=== PATIENT | female | born 1960 | race Caucasian/White ===

== ENCOUNTER 2019-02-27 14:12 | Outpatient (REF) | payer BC, SELFPAY | END 2019-02-27 14:32 | LOC: LBN 14:12 | PROVIDERS: PCP Nurse Practitioner Family; Visit Provider Nurse Practitioner Family | DX: N89.8 Other specified noninflammatory disorders of vagina (principal) | CPT/HCPCS: 87480; 87510; 87660 ==

== ENCOUNTER 2019-03-06 11:31 | Outpatient (REF) | payer BC, SELFPAY ==
--- NOTE | 2019-03-06 09:45 | PAPFT_PTH ---
PATIENT: Hiral Lucas LOC: [facility] U#:[id number] AGE/SX: 58/F ROOM: RE03/06/[address]: Cassie Velez APRN : 1960 BED: DIS: 03/06/2019 SPEC #: [id number] RECD: 03/06/19 12:43 STATUS: GENESIS REJose #: [id number] ESME: 03/06/19 09:[address]: Cassie Velez DEPT: [facility] Cytology RECD BY: Chantelle Justice Tissues: 1 - CX/ENDOCX FOR PAP SMEARS Procedures: PAP THIN PREP/UVM Screening HPV DNA PROBE Comments: [id number] (CHLAMYDIA/GC)
[2019-03-09 14:31] LABS: Chlamydia Result Negative; GC Result Negative; Specimen Description SEE COMMENTS
== END 2019-03-06 11:51 ==
LOC: LBN 11:31
PROVIDERS: PCP Nurse Practitioner Family; Visit Provider Nurse Practitioner Family
DX: Z12.4 Encounter for screening for malignant neoplasm of cervix (principal); Z11.51 Encounter for screening for human papillomavirus (HPV); Z11.3 Encounter for screening for infections with a predominantly sexual mode of transmission
CPT/HCPCS: 87491; 87591; 88142; 87624

== ENCOUNTER 2019-03-20 01:43 | Outpatient (CLI) | payer BC, SELFPAY ==
--- NOTE | 2019-03-20 16:04 | DI.MAMMO_ITS ---
SYMPTOM/DIAGNOSIS: SCREENING, Z12.31 MAMMOGRAMS: Mammograms were interpreted according to the usual protocol including computer analysis with CAD system, tomosynthesis and C view imaging. The breasts are heterogeneously dense. No dominant mass or clumped microcalcification identified in either breast. The current examination is compared with previous examinations including 02/2018 and there has been no gross interval change in appearance in comparison with the previous studies. CONCLUSION: No specific evidence of malignancy at this time. Routine screening examinations are suggested at yearly intervals due to the family history of breast carcinoma. Category 1. Breast density, category C. MQSA ASSESSMENT OF FINDINGS: Negative. Category 1. Patient will receive a letter notifying them of these results. Bi-RADS category C. The breasts are heterogeneously dense, which may obscure small masses.
== END 2019-03-20 02:03 ==
PROVIDERS: PCP Nurse Practitioner Family; Visit Provider Nurse Practitioner Family
DX: Z12.31 Encounter for screening mammogram for malignant neoplasm of breast (principal); Z80.3 Family history of malignant neoplasm of breast
CPT/HCPCS: 77063; 77067

== ENCOUNTER 2019-03-26 16:38 | Outpatient (REF) | payer BC, SELFPAY ==
--- NOTE | 2019-03-26 16:00 | CER_PTH ---
PATIENT: Hiral Lucas LOC: [facility] U#:[id number] AGE/SX: 58/F ROOM: RE03/26/[address]: Aurora Gaitan MD : 1960 BED: DIS: 03/26/2019 SPEC #: [id number] RECD: 03/26/19 17:33 STATUS: GENESIS REJose #: [id number] ESME: 03/26/19 16:[address]: Aurora Gaitan DEPT: Surgical Specimen RECD BY: Chantelle Justice ENTERED: 03/26/19 17:36 SP TYPE: CER KIMANI DR: Cassie Velez APRN Tissues: 1 - CERVICAL BIOPSY 2 - CERVICAL BIOPSY 3 - ENDOCERVICAL BX/CURRETTE 4 - ENDOMETRIUM BX/CURRETTE Procedures: GROSS AND MICRO LEVEL 4 Comments: [id number]
== END 2019-03-26 16:58 ==
LOC: LBN 16:38
PROVIDERS: PCP Nurse Practitioner Family; Visit Provider Obstetrics & Gynecology
DX: N84.1 Polyp of cervix uteri (principal); N88.8 Other specified noninflammatory disorders of cervix uteri; Z87.410 Personal history of cervical dysplasia; N85.01 Benign endometrial hyperplasia
CPT/HCPCS: 88305

== ENCOUNTER 2019-07-06 14:02 | Outpatient (CLI) | payer BC, SELFPAY ==
[2019-07-06 15:41] LABS: TSH (W/Ref FT4) 1.07 uIU/mL (0.36-3.74)
[2019-07-07 09:30] LABS: Prolactin 4.9 ng/ml
== END 2019-07-06 14:22 ==
PROVIDERS: PCP Nurse Practitioner Family; Visit Provider Obstetrics & Gynecology
DX: N95.0 Postmenopausal bleeding (principal); N64.4 Mastodynia
CPT/HCPCS: 36415; 84146; 84443

== ENCOUNTER 2019-07-10 01:01 | Outpatient (CLI) | payer BC, SELFPAY ==
--- NOTE | 2019-07-10 09:44 | DI.US_ITS ---
SYMPTOM/DIAGNOSIS: POSTMENOPAUSAL BLEEDING, N95.0 PELVIC ULTRASOUND: Transabdominal and transvaginal examination was performed. No priors for comparison. The uterus measures 7.2 cm. long by 4.5 cm. AP by 5.4 cm. transverse. The endometrial stripe is within normal limits at 6.7 mm. No myometrial mass is present. Both ovaries were visualized and show no gross abnormality. No free pelvic fluid or hydronephrosis is identified. IMPRESSION: Normal pelvic ultrasound.
== END 2019-07-10 01:21 ==
PROVIDERS: PCP Nurse Practitioner Family; Visit Provider Obstetrics & Gynecology
DX: N95.0 Postmenopausal bleeding (principal)
CPT/HCPCS: 76830; 76856

== ENCOUNTER 2019-09-28 01:16 | Outpatient (CLI) | payer BC, SELFPAY ==
--- NOTE | 2019-09-28 07:33 | DI.US_ITS ---
EXAM: US PELVIS TRANSVAGINAL CLINICAL HISTORY: Follow up left ovarian cyst and thickened endometrium, h/o postmenopausal bleeding , z87.42 TECHNIQUE: Ultrasound performed using standard protocol. COMPARISON: US PELVIS TRANSVAGINAL from 07/10/2019 FINDINGS: The patient was not adequately prepped for the examination. The study is somewhat limited due to ove rlying bowel. The uterus measures 6.1 cm long by 3.3 cm transverse by 4.7 cm AP. The endometrial stripe is within normal limits at 4.3 mm. The uterus is unremarkable. Cervical nabothian cysts are present. The ovaries were not visualized transabdominally or transvaginally. No adnexal masses are seen. No hydronephrosis or free pelvic fluid is seen. IMPRESSION: 1. Examination limited as described above. 2. Unremarkable examination as visualized.
== END 2019-09-28 01:36 ==
PROVIDERS: PCP Nurse Practitioner Family; Visit Provider Obstetrics & Gynecology
DX: N83.292 Other ovarian cyst, left side (principal); N95.0 Postmenopausal bleeding
CPT/HCPCS: 76830; 76856

== ENCOUNTER 2020-05-03 01:39 | Outpatient (CLI) | payer BC, SELFPAY ==
[2020-05-03 07:59] LABS: Abs Immature Grans 0.01 k/cumm (0.0-0.09); Absolute Basophil Count 0.04 k/cumm (0.0-0.2); Absolute Eosinophil Count 0.11 k/cumm (0.0-0.7); Absolute Lymphocyte Count 1.89 k/cumm (1.2-3.4); Absolute Monocyte Count 0.31 k/cumm (0.11-0.7); Absolute Neutrophil Count 3.26 k/cumm (1.2-6.7); Basophils % 0.7; HCT 43.3 % (36.0-46.0); HGB 15.3 g/dL (12.0-15.5); Immature Grans % 0.2 %; Lymphocytes % 33.6; Mean Corp. HGB Concentration 35.3 g/dL (32.0-36.0); Mean Corpuscular Hemoglobin 31.2 pg (27.0-33.0); Mean Corpuscular Volume 88.2 fL (80-95); Monocytes % 5.5; Platelet Count 248 x1000/uL (130-400); RBC 4.91 m/cumm (4.00-5.20); White Blood Cell Count 5.62 k/cumm (4.4-10.8)
[2020-05-03 08:47] LABS: ALT 26 U/L (14-59); AST 20 U/L (15-37); Albumin 4.1 g/dL (3.4-5.0); Alkaline Phosphatase 97 U/L (46-116); Anion Gap 4.3 mmol/L (3-11); BUN 10 mg/dL (7-18); Bilirubin, Total 0.5 mg/dL (0.2-1.0); CO2 32.7 mmol/L (21.0-32.0); Calculated LDL 120 mg/dL (<100); Chloride 107 mmol/L (98-107); Cholesterol 202 mg/dL (<200); Glucose 87 mg/dL (74-106); HDL Cholesterol 67 mg/dL (40-60); Potassium 4.7 mmol/L (3.5-5.1); Sodium 144 mmol/L (136-145); Total Protein 6.8 g/dL (6.4-8.2); Triglyceride 75 mg/dL (<150)
== END 2020-05-03 01:59 ==
PROVIDERS: PCP Nurse Practitioner Family; Visit Provider Nurse Practitioner Family
DX: E78.5 Hyperlipidemia, unspecified (principal); Z13.1 Encounter for screening for diabetes mellitus; Z51.81 Encounter for therapeutic drug level monitoring
CPT/HCPCS: 36415; 80053; 80061; 85025

== ENCOUNTER 2020-05-26 10:30 | Outpatient (REF) | payer BC, SELFPAY ==
--- NOTE | 2020-05-26 09:30 | PAPFT_PTH ---
PATIENT: Hiral Lucas LOC: [facility] U#:[id number] AGE/SX: 59/F ROOM: RE05/26/[address]: KEVEN Gudino : 1960 BED: DIS: 05/26/2020 SPEC #: [id number] RECD: 05/26/20 12:46 STATUS: GENESIS REQ #: [id number] ESME: 05/26/20 09:[address]: Laury Moses DEPT: [facility] Cytology RECD BY: Chantelle Justice ENTERED: 05/26/20 12:46 SP TYPE: PAPFT OTHR DR: Cassie Velez APRN Tissues: 1 - CX/ENDOCX FOR PAP SMEARS Procedures: PAP THIN PREP/UVM Screening HPV DNA PROBE Comments: [id number]
== END 2020-05-26 10:50 ==
LOC: LBN 10:30
PROVIDERS: PCP Nurse Practitioner Family; Visit Provider Nurse Practitioner Family
DX: Z12.4 Encounter for screening for malignant neoplasm of cervix (principal); Z11.51 Encounter for screening for human papillomavirus (HPV); R87.810 Cervical high risk human papillomavirus (HPV) DNA test positive; Z87.42 Personal history of other diseases of the female genital tract
CPT/HCPCS: 88142; 87624

== ENCOUNTER 2020-06-08 02:23 | Outpatient (CLI) | payer BC, SELFPAY ==
--- NOTE | 2020-06-08 07:45 | DI.MAMMO_ITS ---
EXAM: MG MAMMO SCREENING CLINICAL HISTORY: screening,z12.39 TECHNIQUE: Bilateral full field digital CC and MLO mammographic images were obtained with 3D tomosyn thesis and utilizing computer aided detection (CAD). COMPARISON: Available for comparison. FINDINGS: Masses/Architectural Distortion: None seen. Microcalcifications: No suspicious pleomorphic-type are seen. Skin Thickening/Nipple Retraction: None. IMPRESSION: 1. No significant interval change with no specific features of malignancy noted. 2. Unless there is more urgent need, screening mammography is recommended, as per [employer] [employer] guidelines. BI-RADS Category 1 - Negative Breast Density - Category C - Heterogeneously dense The mammogram demonstrates the patient's breast tissue is dense. Dense breast tissue is very common a nd is not abnormal but dense breast tissue can make it harder to find cancer on a mammogram. Also, de nse breast tissue may increase their breast cancer risk. This information about the result of the [facility] mogram report was provided to the patient to raise their awareness. Use this report when you speak wi th the patient about their risks for breast cancer, which includes their family history. At that time , you may recommend for more screening tests (Ultrasound or MRI) as they might be useful based on the ir risk. A negative radiographic report should not delay biopsy if a dominant or clinically suspicious mass is present. Up to ten percent of cancers are not identified on mammography. A negative report may reinforce clinical impression. Adenosis and dense breasts may obscure an underlying neoplasm. False positive reports average 6 to 10%. Patient will receive a letter notifying them of these results.
== END 2020-06-08 02:43 ==
PROVIDERS: PCP Nurse Practitioner Family; Visit Provider Nurse Practitioner Family
DX: Z12.31 Encounter for screening mammogram for malignant neoplasm of breast (principal)
CPT/HCPCS: 77063; 77067

== ENCOUNTER 2020-06-15 12:37 | Outpatient (REF) | payer BC, SELFPAY ==
--- NOTE | 2020-06-15 11:30 | ENDO_PTH ---
PATIENT: Hiral Lucas LOC: [facility] U#:[id number] AGE/SX: 59/F ROOM: RE06/15/[address]: Kristopher Maloney MD : 1960 BED: DIS: 06/15/2020 SPEC #: [id number] RECD: 06/15/20 16:46 STATUS: GENESIS REJose #: [id number] ESME: 06/15/20 11:[address]: Kritsopher aMloney DEPT: Surgical Specimen RECD BY: Chantelle Justice ENTERED: 06/15/20 16:49 SP TYPE: Endo OTHR DR: Cassie Velez APRN Tissues: 1 - ENDOCERVICAL BX/CURRETTE Procedures: GROSS AND MICRO LEVEL 4 Comments: [id number]
== END 2020-06-15 12:57 ==
LOC: LBN 12:37
PROVIDERS: PCP Nurse Practitioner Family; Visit Provider Obstetrics & Gynecology
DX: R87.810 Cervical high risk human papillomavirus (HPV) DNA test positive (principal); Z87.42 Personal history of other diseases of the female genital tract; N72 Inflammatory disease of cervix uteri
CPT/HCPCS: 88305

== ENCOUNTER 2021-06-15 04:23 | Outpatient (CLI) | payer BC, SELFPAY ==
[2021-06-15 07:24] LABS: Abs Immature Grans 0.01 10^3/uL (0.0-0.06); Absolute Basophil Count 0.05 10^3/uL (0.0-0.2); Absolute Lymphocyte Count 1.55 10^3/uL (1.2-3.4); Absolute Monocyte Count 0.28 10^3/uL (0.1-0.8); Absolute Neutrophil Count 2.69 10^3/uL (1.2-6.7); Basophils % 1.1; Eosinophils % 2.1; HCT 47.1 % (36.0-46.0); HGB 16.6 g/dL (11.2-15.7); Immature Grans % 0.2; Lymphocytes % 33.1; MCHC 35.2 % (32.0-36.0); MCV 87.9 fL (80-95); MPV 9.2 fL (8.0-11.0); Neutrophils % 57.5; Nucleated RBC 0 %; Platelet Count 217 10^3/uL (130-400); RBC 5.36 10^6/uL (3.93-5.22); RDW 12.5 % (11.7-14.6); RDW-SD 40.3 fL; WBC 4.68 10^3/uL (4.4-10.8)
[2021-06-15 08:09] LABS: ALT 19 U/L (14-59); AST 15 U/L (15-37); Albumin 4.1 g/dL (3.4-5.0); Alkaline Phosphatase 92 U/L (46-116); Anion Gap 9.4 mmol/L (3-11); BUN 14 mg/dL (7-18); Bilirubin, Total 0.5 mg/dL (0.2-1.0); CO2 29.6 mmol/L (21.0-32.0); CREATININE 0.8 mg/dL (0.55-1.02); Chloride 106 mmol/L (98-107); Glucose 81 mg/dL (74-106); Potassium 4.1 mmol/L (3.5-5.1); Sodium 145 mmol/L (136-145); Total Protein 7.2 g/dL (6.4-8.2)
[2021-06-16 10:35] LABS: Hepatitis C Ab w Rflx HCV PCR Negative (Negative)
[2021-06-16 10:50] LABS: HIV-1/2 Ag & Ab Screen Negative (Negative)
== END 2021-06-15 04:24 | disposition home or self-care (01) ==
LOC: LBO 04:23
PROVIDERS: PCP Nurse Practitioner Family; Visit Provider Nurse Practitioner Family
DX: Z13.1 Encounter for screening for diabetes mellitus (principal); Z51.81 Encounter for therapeutic drug level monitoring; Z11.4 Encounter for screening for human immunodeficiency virus [HIV]; Z11.59 Encounter for screening for other viral diseases
CPT/HCPCS: 36415; 80053; 86803; 87389; 85025

== ENCOUNTER 2021-07-03 01:53 | Outpatient (CLI) | payer BC, SELFPAY ==
--- NOTE | 2021-07-03 08:27 | DI.MAMMO_ITS ---
Exam(s) MAMMO SCREENING EXAM: MAMMO SCREENING CLINICAL HISTORY: screening, Z12.39. TECHNIQUE: Bilateral full field digital CC and MLO mammographic images were obtained with 3D tomosyn thesis and utilizing computer aided detection (CAD). COMPARISON: Prior mammograms dating back to 2011, the most recent being May 2020. FINDINGS: Fibroglandular tissue is moderately dense. Some asymmetric tissue in left breast seen on the CC view located 5 cm in from the nipple is unchange d. There are no new obvious spiculated masses nor malignant appearing microcalcification groups. There is no significant architectural distortion nor skin thickening-retraction. IMPRESSION: No radiographic evidence of malignancy. BI-RADS Category 1 - Negative Breast Density - Category C - Heterogeneously dense Breast density Category C or D implies that the patient has dense breast tissue. Dense breast tissue can make it harder to find cancer on a mammogram. Dense breast tissue is also associated with an incr eased risk of breast cancer. This information about the result of the mammogram report was provided to the patient to raise their awareness. Use this report when you speak with the patient about their risks for breast cancer, which includes their family history. At that time, you may recommend additional screening tests (Ultrasoun d or MRI) as these tests may add significant information. A negative radiographic report should not delay biopsy if a dominant or clinically suspicious mass is present. Up to ten percent of cancers are not identified on mammography. A negative report may reinforce clinical impression. Adenosis and dense breasts may obscure an underlying neoplasm. False positive reports average 6 to 10%. Patient will receive a letter notifying them of these results.
== END 2021-07-03 02:13 ==
PROVIDERS: PCP Nurse Practitioner Family; Visit Provider Nurse Practitioner Family
DX: Z12.31 Encounter for screening mammogram for malignant neoplasm of breast (principal)
CPT/HCPCS: 77063; 77067

== ENCOUNTER 2021-07-03 11:57 | Outpatient (REF) | payer BC, SELFPAY ==
--- NOTE | 2021-07-03 10:45 | PAPFT_PTH ---
PATIENT: Hiral Lucas LOC: [facility] U#:[id number] AGE/SX: 60/F ROOM: RE07/03/[address]: KEVEN Gudino : 1960 BED: DIS: 07/03/2021 SPEC #: [id number] RECD: 07/03/21 12:55 STATUS: GENESIS REQ #: [id number] ESME: 07/03/21 10:[address]: Laury Moses DEPT: [facility] Cytology RECD BY: Chantelle Justice ENTERED: 07/03/21 12:56 SP TYPE: PAPFT OTHR DR: Cassie Velez APRN Tissues: 1 - CX/ENDOCX FOR PAP SMEARS Procedures: PAP THIN PREP/UVM Screening HPV DNA PROBE Comments: [id number]
== END 2021-07-03 11:58 | disposition home or self-care (01) ==
LOC: LBN 11:57
PROVIDERS: PCP Nurse Practitioner Family; Visit Provider Nurse Practitioner Family
DX: Z12.4 Encounter for screening for malignant neoplasm of cervix (principal); R87.610 Atypical squamous cells of undetermined significance on cytologic smear of cervix (ASC-US); Z11.51 Encounter for screening for human papillomavirus (HPV); R87.810 Cervical high risk human papillomavirus (HPV) DNA test positive
CPT/HCPCS: 88142; 87624

== ENCOUNTER 2022-05-09 02:14 | Outpatient (CLI) | payer BC, SELFPAY ==
[2022-05-09 13:16] LABS: Abs Immature Grans 0.02 10^3/uL (0.0-0.06); Absolute Basophil Count 0.06 10^3/uL (0.0-0.2); Absolute Eosinophil Count 0.12 10^3/uL (0.0-0.7); Absolute Lymphocyte Count 2.33 10^3/uL (1.2-3.4); Absolute Monocyte Count 0.52 10^3/uL (0.1-0.8); Absolute Neutrophil Count 4.08 10^3/uL (1.2-6.7); Basophils % 0.8; Eosinophils % 1.7; HCT 45.2 % (36.0-46.0); HGB 15.8 g/dL (11.2-15.7); Immature Grans % 0.3; Lymphocytes % 32.7; MCH 31.2 pg (27.0-33.0); MCV 89 fL (80-95); MPV 8.6 fL (8.0-11.0); Monocytes % 7.3; Neutrophils % 57.2; Platelet Count 226 10^3/uL (130-400); RBC 5.07 10^6/uL (3.93-5.22); RDW 12.1 % (11.7-14.6); RDW-SD 39.6 fL; WBC 7.13 10^3/uL (4.4-10.8)
== END 2022-05-09 02:15 | disposition home or self-care (01) ==
LOC: LBO 02:14
PROVIDERS: PCP Nurse Practitioner Family; Visit Provider Nurse Practitioner Family
DX: R71.8 Other abnormality of red blood cells (principal)
CPT/HCPCS: 36415; 85025

== ENCOUNTER 2022-06-26 03:25 | Outpatient (CLI) | payer BC, SELFPAY ==
[2022-06-26 07:55] LABS: ALT 27 U/L (14-59); AST 22 U/L (15-37); Albumin 3.6 g/dL (3.4-5.0); Alkaline Phosphatase 89 U/L (46-116); BUN 12 mg/dL (7-18); Bilirubin, Total 0.6 mg/dL (0.2-1.0); CREATININE 0.7 mg/dL (0.55-1.02); Calcium 8.6 mg/dL (8.5-10.1); Calculated LDL 126 mg/dL (<100); Chloride 106 mmol/L (98-107); Cholesterol 206 mg/dL (<200); Glucose 87 mg/dL (74-106); HDL Cholesterol 65 mg/dL (40-60); Sodium 141 mmol/L (136-145); Total Protein 6.8 g/dL (6.4-8.2); Triglyceride 75 mg/dL (<150)
== END 2022-06-26 03:26 | disposition home or self-care (01) ==
LOC: LBO 03:25
PROVIDERS: PCP Nurse Practitioner Family; Visit Provider Nurse Practitioner
DX: E78.5 Hyperlipidemia, unspecified (principal); Z13.220 Encounter for screening for lipoid disorders
CPT/HCPCS: 36415; 80053; 80061

== ENCOUNTER → 2022-07-06 00:07 | Outpatient (CLI) | payer BC, SELFPAY ==
--- OUTSIDE RECORDS SUMMARY | 2022-07-06 00:09 | XMS_ITS | Encounter Summary ---
:1960 Author Organization [facility] Address [address] [place] [address] Care Team Providers Name Role Phone Unavailable Primary Care Provider Unavailable Encounter Details Date Type Department Care Team Description 11/19/2002 Results Only [facility] - Caren Miller NP conversion [address] [place] [address] Social History Tobacco Use Types Packs/Day Years Used Date Never Assessed Sex Assigned at Date Recorded Not on file documented as of this encounter Plan of Treatment Not on filedocumented as of this encounter Procedures Procedure Name Priority Date/Time Associated Diagnosis Comme nts CYTOPATHOLOGY Routine 11/19/2002 0:00 EST Results for this procedure are i n the results section . documented in this encounter Results CYTOPATHOLOGY (11/19/2002 0:00 EST) Pathology Report: CYTOPATHOLOGY REPORT [facility] Reports generated via electronic interface contain christiano ginal data; however they are lacking the format of the original re port. Caution should be taken when reading/interpreting unfo rmatted reports. Name: ? HIRAL LUCAS ? Accession #: ? [id number] : ? 1960 (Age: 42) ??F ?Collect Date: ? 12/2002 Location: ? [facility] ? Receive Date : ? 11/23/2002 Provider: ?CAREN WALLACE MANAGER BALANCE Copy to: ? Specimen/Source: ?ThinPrep Pap Test, Cervix/ Endocervix Last Menstrual Period: ? Previous Gynecologic Pathology: ? ASC-US: , , Benign cellular changes: , HPV ? SPECIMEN ADEQUACY ? Satisfactory for Evaluation - transformation zone component present GENERAL CATEGORIZATION ? Negative for Intraepithelial Lesion or Malignan cy INTERPRETATION ? Reactive cellular ct nges associated with inflammation present (includes repair). ? Document reviewed and electronically signed by: ? Lisa Schwartz MD ? Report Date: ??11/27/2002 08:33 End of Report Specimen Performing Organization Address City/State/ZIP Code Phon e Number [facility] [address] [place] [address] SERVICES [facility] [address] [place] [address] documented in this encounter Visit Diagnoses Not on filedocumented in this encounter
--- OUTSIDE RECORDS SUMMARY | 2022-07-06 00:09 | XMS_ITS | Encounter Summary ---
:1960 Author Organization [facility] Address [address] [place] [address] Care Team Providers Name Role Phone Unavailable Primary Care Provider Unavailable Encounter Details Date Type Department Care Team Description 01/11/2004 Results Only [facility] - Bárbara Mart MD Maple conversion [address] [place] [address] [place] [address] Social History Tobacco Use Types Packs/Day Years Used Date Never Assessed Sex Assigned at Date Recorded Not on file documented as of this encounter Plan of Treatment Not on filedocumented as of this encounter Procedures Procedure Name Priority Date/Time Associated Diagnosis Comme [facility] SURGICAL PATHOLOGY Routine 01/11/2004 0:00 EST Re sults for this procedure are i n the results section. documented in this encounter Results SURGICAL PATHOLOGY (01/11/2004 0:00 EST) Pathology Report: SURGICAL PATHOLOGY REPORT [facility] Reports generated via electronic interface contain christiano ginal data; LAB however they are lacking the format of the original re port. Caution should be taken when reading/interpreting unfo rmatted reports. Name: ? HIRAL LUCAS ? Accession #: ? [id number] ? : ? 1960 (Age: 43) ??F ? Collect Date: ? 01/11/2004 ? Location: ? [facility] ? Receive Date: ? 004 ? Provider: DESTINY MART MD Copy to: DESTINY ALAN HEAD USHER ? Final Pathologic Diagnosis: ? Cervix, polyp, polypectomy: 1. ?Endocervical polyp. 2. ?No dysplasia identified. Document reviewed and electronically signed by: SOURAV MARTIN MD Report ??Date: 01/13/2004 16:52 By the signature above, the attending physician certif ies that he/she has personally conducted a gross and/or microscopic examin ation of the described specimens and rendered or confirmed the above diagnosi s. Specimen(s) Received: ? Polyp Clinical History: ? Endocervical polyp Gross Description: ? Received in formalin labeled Laferriere and cervix endo are two peace-white to red, focally he morrhagic soft tissue fragments averaging 0.6 x 0.5 x 0.3 cm to 0.7 x 0.5 x 0.3 cm. ??The specimen is enti rely submitted in one cassette. ??(Marta Monte)/dennis End of Report Specimen Performing Organization Address City/State/ZIP Code Phon e Number [facility] [address] [place] [address] SERVICES [facility] [address] [place] [address] documented in this encounter Visit Diagnoses Not on filedocumented in this encounter
--- OUTSIDE RECORDS SUMMARY | 2022-07-06 00:09 | XMS_ITS | Encounter Summary ---
:1960 Author Organization [facility] Address [address] [place] [address] Care Team Providers Name Role Phone Unavailable Primary Care Provider Unavailable Encounter Details Date Type Department Care Team Description 11/07/2000 Results Only [facility] - Caren Miller NP conversion [address] [place] [address] Social History Tobacco Use Types Packs/Day Years Used Date Never Assessed Sex Assigned at Date Recorded Not on file documented as of this encounter Plan of Treatment Not on filedocumented as of this encounter Procedures Procedure Name Priority Date/Time Associated Diagnosis Comme nts CYTOPATHOLOGY Routine 11/07/2000 0:00 EST Results for this procedure are i n the results section . documented in this encounter Results CYTOPATHOLOGY (11/07/2000 0:00 EST) Pathology Report: CYTOPATHOLOGY REPORT [facility] Reports generated via electronic interface contain christiano ginal data; however they are lacking the format of the original re port. Caution should be taken when reading/interpreting unfo rmatted reports. Name: ? HIRAL LUCAS ? Accession #: ? [id number] : ? 1960 (Age: 39) ??F ?Collect Date: ? 10/19 Location: ? [facility] ? Receive Date : ? 11/08/2000 Provider: ?CAREN WALLACE STEELSCOPE OPERATOR Copy to: ? Specimen/Source: ?ThinPrep Pap Test, Cervix/ Endocervix Last Menstrual Period: ? 10/18/00 Previous Gynecologic Pathology: ? ASC-US: , Benign cellular changes: Treatment History: ? Cryotherapy ? SPECIMEN ADEQUACY ? Satisfactory for evaluation. GENERAL CATEGORIZATION ? Epithelial Cell Abnormality DESCRIPTIVE DIAGNOSIS ? Atypical squamous cells of undetermined signifi cance (ASCUS), favor reactive process. RECOMMENDATION ? Recommend repeat Pap test in 3-6 months or further follow up, as clinically indicated. ? Document reviewed and electronically signed by: ? Sihra Zelaya MD ? Report Date: ??11/26/2000 13:06 End of Report Specimen Performing Organization Address City/State/ZIP Code Phon e Number [facility] [address] [place] [address] SERVICES [facility] [address] [place] [address] documented in this encounter Visit Diagnoses Not on filedocumented in this encounter
--- OUTSIDE RECORDS SUMMARY | 2022-07-06 00:09 | XMS_ITS | Encounter Summary ---
:1960 Author Organization [facility] Address [address] [place] [address] Care Team Providers Name Role Phone Unavailable Primary Care Provider Unavailable Encounter Details Date Type Department Care Team Description 10/12/2014 Hospital Encounter [facility]- Marlen Unknown, Provider, [facility] [address] [facility] [phone] [place] [address] (Work) [phone] Social History Tobacco Use Types Packs/Day Years Used Date Never Assessed Sex Assigned at Date Recorded Not on file documented as of this encounter Discharge Disposition Disposition Code Departure Means Destination Home or Self Retirement documented in this encounter Plan of Treatment Not on filedocumented as of this encounter Visit Diagnoses Not on filedocumented in this encounter
--- OUTSIDE RECORDS SUMMARY | 2022-07-06 00:09 | XMS_ITS | Encounter Summary ---
:1960 Author Organization [facility] Address [address] [place] [address] Care Team Providers Name Role Phone Unavailable Primary Care Provider Unavailable Encounter Details Date Type Department Care Team Description 04/22/2008 Results Only [facility] - Meaghan Stoddard son, Jasmin L, PROPERTY LOSS INSURANCE CLAIM ADJUSTER conversion [address] [place] [phone] (Wo rk) Social History Tobacco Use Types Packs/Day Years Used Date Never Assessed Sex Assigned at Date Recorded Not on file documented as of this encounter Plan of Treatment Not on filedocumented as of this encounter Procedures Procedure Name Priority Date/Time Associated Diagnosis Comme nts CYTOPATHOLOGY Routine 04/22/2008 0:00 EDT Results for this procedure are i n the results section . documented in this encounter Results CYTOPATHOLOGY (04/22/2008 0:00 EDT) Pathology Report: CYTOPATHOLOGY REPORT [facility] Reports generated via electronic interface contain christiano ginal data; however they are lacking the format of the original re port. Caution should be taken when reading/interpreting unfo rmatted reports. Name: ? HIRAL LUCAS ? Accession #: ? [id number] : ? 1960 (Age: 47) ??F ?Collect Date: ? 03/2008 Location: ? [facility] ? Receive Date : ? 04/23/2008 Provider: ?JASMIN ALAN PROPERTY LOSS INSURANCE CLAIM ADJUSTER Copy to: ? Specimen/Source: ? ThinPrep Pap Test, Cervix, processed on Owned it ThinPrep Imaging System, with manual evaluation Last Menstrual Period: ? 03/21/08 Other: ? HPVA - HPV testing requested if ASC-US on the current ThinPrep Pap test. ? SPECIMEN ADEQUACY ? Satisfactory for Evaluation - transformation zone component present GENERAL CATEGORIZATION ? Negative for Intraepithelial Lesion or Malignan cy ? Document reviewed and electronically signed by: ? Lorie Encarnacion, SCT(ASCP) ? Report Date: ??04/26/2008 15:33 End of Report Specimen Performing Organization Address City/State/ZIP Code Phon e Number [facility] [address] [place] [address] SERVICES [facility] [address] [place] [address] documented in this encounter Visit Diagnoses Not on filedocumented in this encounter
--- OUTSIDE RECORDS SUMMARY | 2022-07-06 00:09 | XMS_ITS | Encounter Summary ---
:1960 Author Organization [facility] Address [address] [place] [address] Care Team Providers Name Role Phone Temo Nunez MD Primary Care Provider [phone] Encounter Details Date Type Department Care Team Description 03/06/2018 Hospital Encounter [facility]- Marlen Unknown, Provider, [facility] [address] [facility] [phone] [place] [address] (Work) [phone] Social History Tobacco Use Types Packs/Day Years Used Date Never Assessed Sex Assigned at Date Recorded Not on file documented as of this encounter Discharge Disposition Disposition Code Departure Means Destination Home or Self Residential documented in this encounter Plan of Treatment Not on filedocumented as of this encounter Visit Diagnoses Not on filedocumented in this encounter Care Teams Billing Typist Relationship Specialty Start Date End Date Temo Nunez MD PCP - General 10/15/14 06/14/20 documented as of this encounter
--- OUTSIDE RECORDS SUMMARY | 2022-07-06 00:09 | XMS_ITS | Encounter Summary ---
:1960 Author Organization [facility] Address [address] [place] [address] Care Team Providers Name Role Phone Unavailable Primary Care Provider Unavailable Encounter Details Date Type Department Care Team Description 10/12/2014 Results Only [facility] Jasmin Mart MD Laboratory Services - [address] [place] [address] [place] [address] Social History Tobacco Use Types Packs/Day Years Used Date Never Assessed Sex Assigned at Date Recorded Not on file documented as of this encounter Plan of Treatment Not on filedocumented as of this encounter Procedures Procedure Name Priority Date/Time Associated Diagnosis Comme [facility] SURGICAL PATHOLOGY Routine 10/12/2014 17:55 Resul ts for this EST procedure are i n the results section. documented in this encounter Results SURGICAL PATHOLOGY (10/12/2014 17:55 EST) Pathology Report: SURGICAL PATHOLOGY REPORT [facility] Reports generated via electronic interface contain christiano ginal data; LABORATORY however they are lacking the format of the original re port. SERVICES Caution should be taken when reading/interpreting unfo rmatted reports. Name: ? HIRAL LUCAS ? Accession #: ? [id number] ? : ? 1960 (Age: 53) ??F ? Collect Date: ? 10/12/2014 ? Location: ? [facility] ? Receive Date: ? 014 ? Provider: JASMIN MART MD Copy to: JASMIN ALAN WIDE AREA NETWORK ENGINEER ? Final Pathologic Diagnosis: ENDOCERVIX, POLYP, BIOPSY: - ??Benign endocervical polyp. Document reviewed and electronically signed by: LANDY LINDSEY MD Report ??Date: 10/18/2014 15:27 By the signature above, the attending physician certif ies that he/she has personally conducted a gross and/or microscopic examin ation of the described specimens and rendered or confirmed the above diagnosi s. Specimen(s) Received: Endocervical polyp Clinical History: Polyp Gross Description: ? Received in formalin labelled with proper patient identification (initials B, N) and cervical polyp a re two peace-pink polypoid tissues (0.5 x 0.5 x 0.4 cm and 0.7 x 0.3 x 0.1 cm) admixed with 1 cc of blo od tinged mucus and red-brown tissue fragments. Entirely submitted in block 1. Ora Reese 10/13/2014 10:40 AM End of Report Specimen Performing Organization Address City/State/ZIP Code Phon e Number [facility] [address] [place] [address] SERVICES documented in this encounter Visit Diagnoses Not on filedocumented in this encounter
--- OUTSIDE RECORDS SUMMARY | 2022-07-06 00:09 | XMS_ITS | Encounter Summary ---
:1960 Author Organization [facility] Address [address] [place] [address] Care Team Providers Name Role Phone Unavailable Primary Care Provider Unavailable Encounter Details Date Type Department Care Team Description 07/09/2013 Results Only [facility]- Destiny Rucker, RECONSTRUCTIVE SURGEON [address] [place] [address] (Wo rk) Social History Tobacco Use Types Packs/Day Years Used Date Never Assessed Sex Assigned at Date Recorded Not on file documented as of this encounter Plan of Treatment Not on filedocumented as of this encounter Procedures Procedure Name Priority Date/Time Associated Diagnosis Comme nts PAP TEST- RESULT Routine 07/09/2013 0:00 EDT Resu lts for this ONLY procedure are i n the results section. documented in this encounter Results PAP TEST- RESULT ONLY (07/09/2013 0:00 EDT) Pathology Report: CYTOPATHOLOGY REPORT [facility] Reports generated via electronic interface contain christiano ginal data; however they are lacking the format of the original re port. Caution should be taken when reading/interpreting unfo rmatted reports. Name: ? HIRAL LUCAS ? Accession #: ? [id number] ? : ? 1960 (Age: 52) ??F ?Collect Da te: ? 07/09/2013 ? Location: ? [facility] ? Receive Date: ? 013 ? Provider: DESTINY LI RECONSTRUCTIVE SURGEON Copy to: ? Final Report SPECIMEN ADEQUACY ? Satisfactory for Evaluation - transformation zone component present GENERAL CATEGORIZATION ? Negative for Intraepithelial Lesion or Malignan cy ?? Last Menstrual Period: 12/31 Previous Gynecologic Pathology: Yes: ??Abnormal Pap, e ndocervical polyp - negative Treatment History: Miscellaneous treatment: Biopsy 200 4 Other: Additional clinical information: Specimen/Source: ??Pap Test, Cervix/Endocervix, ThinPr ep Imaging System with manual evaluation Document reviewed and electronically signed by: ? CORNELIA Hernandez(ASCP) ? Report ??Date: 07/21/2013 12:30 HPV with Pap Test ? Date Ordered: ? 07/21/2013 ? Status: ?? Signed Out ?Date Complete: ? 07/23/2013 ? By: ??S ystem Interface ? Date Reported: ? 07/23/2013 ? Interpretation RESULT: Positive for high or intermediate risk HPV. E6 OR E7 mRNA from one or more types of HPV types 16,1 8,31, 33,35,39,45,51,52,56,58,59,66, and 68 is detected by stroke coordinator mediated amplification. High and intermediate risk HPV types are associated wi th most squamous intraepithelial lesions and cervical can cers. Comments Document reviewed and electronically signed by: ? System Interface ? Report date: 07/23/2013 By the signature above, the attending physician certif ies that he/she has personally conducted a gross and/or microscopic examin ation of the described specimens and rendered or confirmed the above diagnosi s. End of Report Specimen Performing Organization Address City/State/ZIP Code Phon e Number [facility] [address] [place] [address] SERVICES [facility] [address] [place] [address] documented in this encounter Visit Diagnoses Not on filedocumented in this encounter
--- OUTSIDE RECORDS SUMMARY | 2022-07-06 00:09 | XMS_ITS | Encounter Summary ---
:1960 Author Organization [facility] Address [address] [place] [address] Care Team Providers Name Role Phone Temo Nunez MD Primary Care Provider [phone] Encounter Details Date Type Department Care Team Description 03/06/2018 Results Only [facility]- PRISM Cassie Velez, [facility] [phone] [address] [place] [phone] (Wo rk) Social History Tobacco Use Types Packs/Day Years Used Date Never Assessed Sex Assigned at Date Recorded Not on file documented as of this encounter Plan of Treatment Not on filedocumented as of this encounter Procedures Procedure Name Priority Date/Time Associated Diagnosis Comme nts PAP TEST- RESULT Routine 03/06/2018 0:00 EDT Resu lts for this ONLY procedure are i n the results section. documented in this encounter Results PAP TEST- RESULT ONLY (03/06/2018 0:00 EDT) Pathology Report: CYTOPATHOLOGY REPORT [facility] Reports generated via electronic interface contain christiano ginal data; SERVICES however they are lacking the format of the original re port. Caution should be taken when reading/interpreting unfo rmatted reports. Name: ? HIRAL LUCAS ? Accession #: ? [id number] ? : ? 1960 (Age: 57) ??F ?Collect Date: ? 03/06/2018 ? Location: ? [facility] ? Receive Date: ? 03/07/20 18 ? Provider: CASSIE VELEZ CUTTER MACHINE Copy to: ? Final Report SPECIMEN ADEQUACY ? Satisfactory for Evaluation - transformation zone component present GENERAL CATEGORIZATION ? Epithelial Cell Abnormality INTERPRETATION ? Squamous Cell Abnormality - Atypical squamous c ells, undetermined significance (ASC-US). EDUCATIONAL NOTES/RECOMMENDATIONS ? [facility] recommends foll owing ASCCP's 2012 Updated Consensus Guidelines for the Management of Abnormal Cervical Cancer Screening T ests and Cancer Precursors (JLGTD, 2013; 17(5):S1-S27). ??Conse nsus guidelines are available online at www.asccp.org. Comment: ? Atrophic background. ? Last Menstrual Period: 2016 Specimen/Source: ??Pap Test, Cervix, ThinPrep Imaging System with manual evaluation Document reviewed and electronically signed by: ? JEANNA CRUM MD ? Report ??Date: 03/17/2018 12:11 HPV with Pap Test ? Date Ordered: ? 03/17/2018 ? Status: ?? Signed Out ?Date Complete: ? 03/18/2018 ? By: ??Sys tem Interface ? Date Reported: ? 03/18/2018 ? Interpretation RESULT: POSITIVE FOR HIGH OR INTERMEDIATE RISK HPV. E6 OR E7 mRNA from one or more types of HPV types 16,1 8,31, 33,35,39,45,51,52,56,58,59,66, and 68 is detected by presser all around mediated amplification. High and intermediate risk HPV types are associated wi th most squamous intraepithelial lesions and cervical can cers. Comments Document reviewed and electronically signed by: ? System Interface ? Report date: 03/18/2018 By the signature above, the attending physician certif ies that he/she has personally conducted a gross and/or microscopic examin ation of the described specimens and rendered or confirmed the above diagnosi s. End of Report Specimen Performing Organization Address City/State/ZIP Code Phon e Number [facility] [address] [place] [address] SERVICES documented in this encounter Visit Diagnoses Not on filedocumented in this encounter Care Teams Tax Accounting Manager Relationship Specialty Start Date End Date Temo Nunez MD PCP - General 10/15/14 06/14/20 documented as of this encounter
--- OUTSIDE RECORDS SUMMARY | 2022-07-06 00:09 | XMS_ITS | Encounter Summary ---
:1960 Author Organization [facility] Address [address] [place] [address] Care Team Providers Name Role Phone Temo Nunez MD Primary Care Provider [phone] Encounter Details Date Type Department Care Team Description 03/26/2019 Hospital Encounter [facility]- Marlen Unknown, Provider, [facility] [address] [facility] [phone] [place] [address] (Work) [phone] Social History Tobacco Use Types Packs/Day Years Used Date Never Assessed Sex Assigned at Date Recorded Not on file documented as of this encounter Discharge Disposition Disposition Code Departure Means Destination Home or Self Longterm documented in this encounter Plan of Treatment Not on filedocumented as of this encounter Visit Diagnoses Not on filedocumented in this encounter Care Teams Sports Management Internship Relationship Specialty Start Date End Date Temo Nunez MD PCP - General 10/15/14 06/14/20 documented as of this encounter
--- OUTSIDE RECORDS SUMMARY | 2022-07-06 00:09 | XMS_ITS | Encounter Summary ---
:1960 Author Organization [facility] Address [address] [place] [address] Care Team Providers Name Role Phone Unavailable Primary Care Provider Unavailable Encounter Details Date Type Department Care Team Description 04/17/2007 Results Only [facility] - Meaghan Stoddard son, Jasmin L, MEDIA PRODUCTION SUPPORT MANAGER conversion [address] [place] [phone] (Wo rk) Social History Tobacco Use Types Packs/Day Years Used Date Never Assessed Sex Assigned at Date Recorded Not on file documented as of this encounter Plan of Treatment Not on filedocumented as of this encounter Procedures Procedure Name Priority Date/Time Associated Diagnosis Comme nts CYTOPATHOLOGY Routine 04/17/2007 0:00 EDT Results for this procedure are i n the results section . documented in this encounter Results CYTOPATHOLOGY (04/17/2007 0:00 EDT) Pathology Report: CYTOPATHOLOGY REPORT [facility] Reports generated via electronic interface contain christiano ginal data; however they are lacking the format of the original re port. Caution should be taken when reading/interpreting unfo rmatted reports. Name: ? HIRAL LUCAS ? Accession #: ? [id number] : ? 1960 (Age: 46) ??F ?Collect Date: ? 03/20 Location: ? [facility] ? Receive Date : ? 04/22/2007 Provider: ?JASMIN ALAN MEDIA PRODUCTION SUPPORT MANAGER Copy to: ? Specimen/Source: ? ThinPrep Pap Test, Cervix, processed on [employer]ore ThinPrep Imaging System, with manual evaluation Last Menstrual Period: ? Other: ? HPVA - HPV testing requested if ASC-US on the current ThinPrep Pap test. ? SPECIMEN ADEQUACY ? Satisfactory for Evaluation - transformation zone component present GENERAL CATEGORIZATION ? Negative for Intraepithelial Lesion or Malignan cy ? Document reviewed and electronically signed by: ? CORNELIA Infante(ASCP)(IAC) ? Report Date: ??04/23/2007 18:40 End of Report Specimen Performing Organization Address City/State/ZIP Code Phon e Number [facility] [address] [place] [address] SERVICES [facility] [address] [place] [address] documented in this encounter Visit Diagnoses Not on filedocumented in this encounter
--- OUTSIDE RECORDS SUMMARY | 2022-07-06 00:09 | XMS_ITS | Encounter Summary ---
:1960 Author Organization [facility] Address [address] [place] [address] Care Team Providers Name Role Phone Temo Nunez MD Primary Care Provider [phone] Encounter Details Date Type Department Care Team Description 03/26/2019 Results Only [facility]- Vivek Braxton MD [phone] [place] [address] (Wo rk) Social History Tobacco Use Types Packs/Day Years Used Date Never Assessed Sex Assigned at Date Recorded Not on file documented as of this encounter Plan of Treatment Not on filedocumented as of this encounter Procedures Procedure Name Priority Date/Time Associated Diagnosis Comme nts SURGICAL PATHOLOGY Routine 03/26/2019 21:50 Resul ts for this EDT procedure are i n the results section. documented in this encounter Results SURGICAL PATHOLOGY (03/26/2019 21:50 EDT) Pathology Report: SURGICAL PATHOLOGY REPORT [facility] Reports generated via electronic interface contain christiano ginal data; LABORATORY however they are lacking the format of the original re port. SERVICES Caution should be taken when reading/interpreting unfo rmatted reports. Name: ? HIRAL LUCAS ? Accession #: ? [id number] ? : ? 1960 (Age: 58) ??F ? Collect Date: ? 03/26/2019 ? Location: ? [facility] ? Receive Date: ? 9 ? Provider: VIVEK RIVAS MD Copy to: MIGUEL ANGEL ROSSI BI TECHNICAL LEAD ? Final Pathologic Diagnosis: A. CERVIX, 10 O'CLOCK, BIOPSY: - Benign endocervical polyp. See comment. B. CERVIX, 5 O'CLOCK, BIOPSY: - Benign squamous mucosa. See comment. C. ENDOCERVIX, CURETTAGE: - Minute fragments of benign endocervix. D. ENDOMETRIUM, BIOPSY: - Inactive endometrium with stromal karyorrhexis and f ocal secretory differentiation. See comment. Comment: The previous Pap test ([id number]) has bee n reviewed, confirming the presence of atypical cells. The cytologi c features of the atypical cells in the Pap test are not seen on the current case. ??Deeper sections of par t A and B have been examined. ?? Part D: This pattern can be seen with estrogen fluctua tions in the perimenopausal setting. Dr. Walden 03/31/2019 10:45 AM Document reviewed and electronically signed by: ISSAC FARRELL MD PHD Report ??Date: 03/31/2019 11:53 By the signature above, the attending physician certif ies that he/she has personally conducted a gross and/or microscopic examin ation of the described specimens and rendered or confirmed the above diagnosi s. Specimen(s) Received: A. ??Cervix bx at 10 o'clock B. ??Cervix bx at 5 o'clock C. ??ECC D. ??Endometrial bx Clinical History: 03/09/19 Pap LSIL pos HPV; 03/06/18 Pap ASCUS pos HPV; p ostmenopausal bleeding Gross Description: A. ?Received in formalin labelled with proper p atient identification (initials B, N) and cervix bx at 10:00 is a single p quentin peace-white tissue fragment (0.5 x 0.2 x 0.1 cm). Submitted intact in A1. B. ?Received in formalin labelled with proper p atient identification (initials B, N) and cervix bx at 5:00 is a single pa le peace-white tissue fragment (0.3 x 0.1 x 0.1 cm). Submitted intact in B1. C. ?Received in formalin labelled with proper p atient identification (initials B,N) and ECC is an aggregate of translucent focally brown speckled viscous material (0.5 x 0.1 x 0.1 cm). Submitted in to to in C1. D. ?Received in formalin labelled with proper p atient identification (initials B, N) and endometrial bx is an aggregate of firm peace tissue (2.0 x 1.5 x 0.5 cm). Submitted in toto in D1. Jocelyn Smith 03/27/2019 9:11 AM End of Report Specimen Performing Organization Address City/State/ZIP Code Phon e Number [facility] [address] [place] [address] SERVICES documented in this encounter Visit Diagnoses Not on filedocumented in this encounter Care Teams Music Cataloguer Relationship Specialty Start Date End Date Temo Nunez MD PCP - General 10/15/14 06/14/20 documented as of this encounter
--- OUTSIDE RECORDS SUMMARY | 2022-07-06 00:09 | XMS_ITS | Encounter Summary ---
:1960 Author Organization [facility] Address [address] [place] [address] Care Team Providers Name Role Phone Temo Nunez MD Primary Care Provider [phone] Encounter Details Date Type Department Care Team Description 04/03/2018 Results Only [facility]- Vivek Braxton MD [phone] [place] [phone] (Wo rk) Social History Tobacco Use Types Packs/Day Years Used Date Never Assessed Sex Assigned at Date Recorded Not on file documented as of this encounter Plan of Treatment Not on filedocumented as of this encounter Procedures Procedure Name Priority Date/Time Associated Diagnosis Comme nts SURGICAL PATHOLOGY Routine 04/03/2018 16:10 Resul ts for this EDT procedure are i n the results section. documented in this encounter Results SURGICAL PATHOLOGY (04/03/2018 16:10 EDT) Pathology Report: SURGICAL PATHOLOGY REPORT [facility] Reports generated via electronic interface contain christiano ginal data; LABORATORY however they are lacking the format of the original re port. SERVICES Caution should be taken when reading/interpreting unfo rmatted reports. Name: ? HIRAL LUCAS ? Accession #: ? [id number] ? : ? 1960 (Age: 57) ??F ? Collect Date: ? 04/03/2018 ? Location: ? [facility] ? Receive Date: ? 04/03/20 18 ? Provider: VIVEK RIVAS MD Copy to: MIGUEL ANGEL ROSSI [employer] CH[employer]DC[employer] ATTENDANT ? Final Pathologic Diagnosis: A. CERVIX, AT 6 O'CLOCK, BIOPSY: - Transitional zone mucosa with atrophic changes. B. CERVIX, AT 12 O'CLOCK, BIOPSY: - Transitional zone mucosa with atrophic changes. C. ENDOCERVIX, CURETTAGE: - Cervical mucus and rare degenerating cells; insuffic ient for further diagnosis. Document reviewed and electronically signed by: ODILIA BAPTISTE MD Report ??Date: 04/07/2018 13:40 By the signature above, the attending physician certif ies that he/she has personally conducted a gross and/or microscopic examin ation of the described specimens and rendered or confirmed the above diagnosi s. Specimen(s) Received: A. ??Cervix bx 6 o'clock B. ??Cervix bx 12 o'clock C. ??ECC Clinical History: 03/06/2018 Pap ASCUS, (+) HPV Gross Description: A. ?Received in formalin labelled with proper p atient identification (initials B, N) and #1 cervix 6 o'clock is a single pink-peace tissue fragment (0.3 x 0.3 x 0.2 cm). Submitted intact in A1. B. ?Received in formalin labelled with proper p atient identification (initials B, N) and #2 cerv ix 12 o'clock are two pink-peace tissues (0.2 x 0.2 x 0.2 cm and 0.3 x 0.2 x 0.2 cm). Entirely submitted in B1. C. ?Received in formalin labelled with proper p atient identification (initials B, N) and #3 ECC is an aggregate of peace-white mucus (0.4 x 0.3 x 0.2 cm). Submitted in toto in C1. BEE Fatima (ASCP) 04/03/2018 4:46 PM End of Report Specimen Performing Organization Address City/State/ZIP Code Phon e Number [facility] [address] [place] [address] SERVICES documented in this encounter Visit Diagnoses Not on filedocumented in this encounter Care Teams Outside Deliverer Relationship Specialty Start Date End Date Temo Nunez MD PCP - General 10/15/14 06/14/20 documented as of this encounter
--- OUTSIDE RECORDS SUMMARY | 2022-07-06 00:09 | XMS_ITS | Encounter Summary ---
:1960 Author Organization [facility] Address [address] [place] [address] Care Team Providers Name Role Phone Temo Nunez MD Primary Care Provider [phone] Cassie Velez EVALUATOR TRANSFER STUDENTS Primary Care Provider Encounter Details Date Type Department Care Team Description 05/27/2020 Lab Requisition [facility] Laury Moses E ncounter for other Pathology & EVALUATOR TRANSFER STUDENTS general examination Laboratory Medicine [address] [place], [place] [address] [facility] [phone] [place], [place] [id number] Social History Tobacco Use Types Packs/Day Years Used Date Never Assessed Sex Assigned at Date Recorded Not on file documented as of this encounter Plan of Treatment Not on filedocumented as of this encounter Procedures Procedure Name Priority Date/Time Associated Comments Diagnosis PAP TEST Today 05/26/2020 9:30 Encounter for other Resul ts for this EDT general examination procedur e are in the results section. HUMAN PAPILLOMAVIRUS Today 05/26/2020 9:30 Encounter for oth er Results for this (HPV) DETECTION-HIGH EDT general examination procedure are in RISK TYPES the results section. documented in this encounter Results (ABNORMAL) HUMAN PAPILLOMAVIRUS (HPV) DETECTION-HIGH RISK TYPES (05/26/2020 9:30 EDT) Human Papillomavirus Positive (A)Comment: Negative [facility] (HPV) Detection-High E6 OR E7 mRNA from CENTER Types one or more types of LABORATORY HPV types SERVICES 16,18,31,33,35,39,45, 51,52,56,58,59,66, and 68 is detected by sterile technician mediated amplification. High and intermediate risk HPV types are associated with most squamous intraepithelial lesions and cervical cancers. Specimen Pap Test - Cervix and/or Endocervix Performing Organization Address City/[facility] Phon e Number [facility] [address] [place] [address] SERVICES PAP TEST (05/26/2020 9:30 EDT) Specimens A. Cervix and/or [facility] Endocervix , ThinPrep CENTER Imaging System with LABORATORY Manual Evaluation SERVICES Specimen Adequacy Satisfactory for [facility] Evaluation - CENTER transformation zone LABORATORY component present SERVICES General Negative for [facility] Categorization intraepithelial CENTER lesion or malignancy LABORATORY SERVICES Descriptive Reactive cellular [facility] Diagnosis changes associated CENTER with inflammation LABORATORY present (includes SERVICES repair). Attestation By the signature below, the attending physician certifies that they have personally conducted a gross and/or microscopic [facility] Electronically examination of the described specimens and rendered or confirmed the above diagnosis. CENTER signed by JESSE Alvarenga MD on SERVICES 06/07/2020 at 14 11 Clinical History SEE ORDER COMMENTS [facility] SERVICES HPV The result for the Human Pap illomavirus (HPV) Detection-High Risk Types is Positive . E6 OR E7 mRNA from one or more types of HPV types 16,18,31,33,35,39,45,51,52,56,58,59,66, and 68 is detected by shaikh [facility] scription mediated amplifica tion. High and intermediate risk HPV types are associated with most squamous intraepithelial lesions and cervical cancers. Testing was performed on specimen [id number] and CENTER was resulted on 06/03/2020 1514 EDT by TICO, LAB INSTRUMENT RESULTS IN LABORATORY SERVICES Scanned Images [facility] SERVICES Specimen Pap Test - Cervix and/or Endocervix Performing Organization Address City/[facility]/ZIP Code Phon e Number [facility] [address] [place] [address] SERVICES documented in this encounter Visit Diagnoses Diagnosis Encounter for other general examination documented in this encounter Care Teams Subway Repair Supervisor Relationship Specialty Start Date End Date Temo Nunez MD PCP - General 10/15/14 06/14/20 Cassie Velez, EVALUATOR TRANSFER STUDENTS PCP - General 06/15/20 [address] [place] [phone] documented as of this encounter
--- OUTSIDE RECORDS SUMMARY | 2022-07-06 00:09 | XMS_ITS | Encounter Summary ---
:1960 Author Organization [facility] Address [address] [place] [address] Care Team Providers Name Role Phone Cassie Velez Primary Care Provider Encounter Details Date Type Department Care Team Description 06/15/2021 Lab Requisition [facility] Outr Resulting Lab, Pathology & Laboratory Provider [facility] [address] [place], [place] [id number] Social History Tobacco Use Types Packs/Day Years Used Date Never Assessed Sex Assigned at Date Recorded Not on file documented as of this encounter Plan of Treatment Not on filedocumented as of this encounter Procedures Procedure Name Priority Date/Time Associated Comments Diagnosis HIV 1/2 ANTIGEN AND Routine 06/15/2021 7:17 EDT R esults for this ANTIBODY, 4TH procedure are in GENERATION the results section. documented in this encounter Results HIV 1/2 ANTIGEN AND ANTIBODY, 4TH GENERATION (06/15/2021 7:17 EDT) HIV 1 and 2 Negative Negative [facility] Antibody/p24 Comment: LABORATORY Antigen, 4th If acute HIV-1 infection is suspected in a high risk ??patient, submit plasma specimen for HIV-1 RNA quantitation test. SERV ICES Generation Fourth Generation assay performed on the Siemens eSellerProa ur. Specimen Blood - Venous blood (substance) Performing Organization Address City/State/ZIP Code Phon e Number [facility] [address] [place] [address] SERVICES documented in this encounter Visit Diagnoses Not on filedocumented in this encounter Care Teams Compensation And Benefits Analyst Relationship Specialty Start Date End Date Cassie Velez, LOBSTER CATCHER PCP - General 06/15/[address] [place] [address] documented as of this encounter
--- OUTSIDE RECORDS SUMMARY | 2022-07-06 00:09 | XMS_ITS | Encounter Summary ---
:1960 Author Organization [facility] Address [address] [place] [address] Care Team Providers Name Role Phone Unavailable Primary Care Provider Unavailable Encounter Details Date Type Department Care Team Description 05/05/2009 Orders Only [facility] Shaye Brown, WIND FARM SUPPORT SPECIALIST Laboratory Services - [address] [place], [place] [address] [place] [id number] [place] [address] [phone] Social History Tobacco Use Types Packs/Day Years Used Date Never Assessed Sex Assigned at Date Recorded Not on file documented as of this encounter Plan of Treatment Not on filedocumented as of this encounter Procedures Procedure Name Priority Date/Time Associated Diagnosis Comme nts CYTOPATHOLOGY Routine 05/05/2009 0:00 EDT Results for this procedure are i n the results section . documented in this encounter Results CYTOPATHOLOGY (05/05/2009 0:00 EDT) Pathology Report: CYTOPATHOLOGY REPORT ? [facility] ? LAB Reports generated via electr onic interface contain original data; ? however they are lacking the format of the original report. ? Caution should be taken when reading/interpreting unformatted reports. ? Name: ? HIRAL LUCAS ? Accession #: ? [id number] ? : ? 1960 (Age: 48) ??F ?Collect Date: ? 05/05/2009 ? Location: ? [facility] ? Receive Date: ? 05/06/2009 ? Provider: ?DESTINY L R OBINSON WIND FARM SUPPORT SPECIALIST ? Copy to: ? Specimen/Source: ? Pap Test, Cervix/Endocervix, ThinPrep Imaging System ? with manual evaluation ? Last Menstrual Period: ? 05/23/09 ? Infection History: ? Herpes: Genital H/o ? Other: ? Additional clinical informat ion: H/o cervical polyp ? HPVA - HPV testing requested if ASC-US on the current ThinPrep Pap test. ? SPECIMEN ADEQUACY ? Satisfactory for Eval uation ? - transformation zone compon ent present ? GENERAL CATEGORIZATION ? Negative for Intraepi thelial Lesion or Malignancy ? Document reviewed and electr onically signed by: ? Lisa [place], CT( CP) ? Report Date: ??06/23/ 2009 12:51 ? End of Report ? Specimen Performing Organization Address City/State/ZIP Code Phon e Number [facility] [address] [place] [address] SERVICES [facility] [address] [place] [address] documented in this encounter Visit Diagnoses Not on filedocumented in this encounter
--- OUTSIDE RECORDS SUMMARY | 2022-07-06 00:09 | XMS_ITS | Encounter Summary ---
:1960 Author Organization [facility] Address [address] [place] [address] Care Team Providers Name Role Phone Cassie Velez Primary Care Provider Encounter Details Date Type Department Care Team Description 06/15/2021 Lab Requisition [facility] Outr Resulting Lab, Pathology & Laboratory Provider [facility] [address] [place], [place] [id number] Social History Tobacco Use Types Packs/Day Years Used Date Never Assessed Sex Assigned at Date Recorded Not on file documented as of this encounter Plan of Treatment Not on filedocumented as of this encounter Procedures Procedure Name Priority Date/Time Associated Diagnosis Comme nts HEPATITIS C AB W Routine 06/15/2021 7:17 EDT Resu lts for this REFLEX TO HCV RNA procedure are in BY PCR the results section. documented in this encounter Results HEPATITIS C AB W REFLEX TO HCV RNA BY PCR (06/15/2021 7:17 EDT) Pathologist Sig nature Hep C Antibody Negative Negative [facility] Specimen Blood - Venous blood (substance) Performing Organization Address City/State/ZIP Code Phon e Number [facility] [address] [place] [address] SERVICES documented in this encounter Visit Diagnoses Not on filedocumented in this encounter Care Teams Composition Instructor Relationship Specialty Start Date End Date Cassie Velez FNP PCP - General 06/15/[address] [place] [id number] documented as of this encounter
--- OUTSIDE RECORDS SUMMARY | 2022-07-06 00:09 | XMS_ITS | Encounter Summary ---
:1960 Author Organization [facility] Address [address] [place] [address] Care Team Providers Name Role Phone Unavailable Primary Care Provider Unavailable Encounter Details Date Type Department Care Team Description 12/20/2003 Results Only [facility] - Caren Miller NP conversion [address] [place] [address] Social History Tobacco Use Types Packs/Day Years Used Date Never Assessed Sex Assigned at Date Recorded Not on file documented as of this encounter Plan of Treatment Not on filedocumented as of this encounter Procedures Procedure Name Priority Date/Time Associated Diagnosis Comme nts CYTOPATHOLOGY Routine 12/20/2003 0:00 EST Results for this procedure are i n the results section . documented in this encounter Results CYTOPATHOLOGY (12/20/2003 0:00 EST) Pathology Report: CYTOPATHOLOGY REPORT [facility] Reports generated via electronic interface contain christiano ginal data; however they are lacking the format of the original re port. Caution should be taken when reading/interpreting unfo rmatted reports. Name: ? HIRAL LUCAS ? Accession #: ? [id number] : ? 1960 (Age: 43) ??F ?Collect Date: ? 12/2003 Location: ? [facility] ? Receive Date : ? 12/22/2003 Provider: ?CAREN WALLACE DECONTAMINATION TECHNICIAN Copy to: ? Specimen/Source: ?ThinPrep Pap Test, Cervix/ Endocervix Last Menstrual Period: ? 11/27/03 Previous Gynecologic Pathology: ? ASC-US: , & HPV: + 05/05/01 Benign cellular changes: , & 05/05/01 Other: ? Additional clinical information: Negative paps 2001 & 2002, asymptomatic cx polyp ? SPECIMEN ADEQUACY ? Satisfactory for Evaluation - transformation zone component present GENERAL CATEGORIZATION ? Negative for Intraepithelial Lesion or Malignan cy ? Document reviewed and electronically signed by: ? CORNELIA Cho(ASCP) ? Report Date: ??12/27/2003 11:14 End of Report Specimen Performing Organization Address City/State/ZIP Code Phon e Number [facility] [address] [place] [address] SERVICES [facility] [address] [place] [address] documented in this encounter Visit Diagnoses Not on filedocumented in this encounter
--- OUTSIDE RECORDS SUMMARY | 2022-07-06 00:09 | XMS_ITS | Encounter Summary ---
:1960 Author Organization [facility] Address [address] [place] [address] Care Team Providers Name Role Phone Unavailable Primary Care Provider Unavailable Encounter Details Date Type Department Care Team Description 05/05/2001 Results Only [facility] - Carne Miller NP conversion [address] [place] [address] Social History Tobacco Use Types Packs/Day Years Used Date Never Assessed Sex Assigned at Date Recorded Not on file documented as of this encounter Plan of Treatment Not on filedocumented as of this encounter Procedures Procedure Name Priority Date/Time Associated Comments Diagnosis HPV DETECTION, HIGH Routine 05/05/2001 8:20 Resul ts for this RISK TYPES EDT procedure are i n the results section. CYTOPATHOLOGY Routine 05/05/2001 0:00 Results for this EDT procedure are i n the results section. documented in this encounter Results HUMAN PAPILLOMA VIRUS DNA TEST (05/05/2001 8:20 EDT) Specimen Description Cervix, ThinPrep [facility] vial LAB Result Positive for one or more of HPV types 6,11,42,43, or 44. These low riskHPV types are usually [facility] associated with benign conditions. LAB Report Status Final [facility] [id number] LAB Specimen Performing Organization Address City/State/ZIP Code Phon e Number [facility] [address] [place] [address] SERVICES [facility] [address] [place] [address] CYTOPATHOLOGY (05/05/2001 0:00 EDT) Pathology Report: CYTOPATHOLOGY REPORT [facility] Reports generated via electronic interface contain christiano ginal data; however they are lacking the format of the original re port. Caution should be taken when reading/interpreting unfo rmatted reports. Name: ? HIRAL LUCAS ? Accession #: ? [id number] : ? 1960 (Age: 40) ??F ?Collect Date: ? 04/18 Location: ? [facility] ? Receive Date : ? 05/06/2001 Provider: ?CAREN WALLACE PROCESS PUMPER Copy to: ? Specimen/Source: ?ThinPrep Pap Test, Cervix/ Endocervix Last Menstrual Period: ? 04/29/01 Previous Gynecologic Pathology: ? ASC-US: and , Benign cellular changes: and Other: ? HPVDX - HPV testing requested regardless of diag nosis on current ThinPrep Pap test. ? SPECIMEN ADEQUACY ? Satisfactory for evaluation. GENERAL CATEGORIZATION ? Benign Cellular Changes DESCRIPTIVE DIAGNOSIS ? Reactive cellular ct nges associated with inflammation present (includes repair). ? Document reviewed and electronically signed by: ? [facility] ? Report Date: ??05/08/2001 17:49 End of Report Specimen Performing Organization Address City/State/ZIP Code Phon e Number [facility] [address] [place] [phone] SERVICES [facility] [address] [place] [address] documented in this encounter Visit Diagnoses Not on filedocumented in this encounter
--- OUTSIDE RECORDS SUMMARY | 2022-07-06 00:09 | XMS_ITS | Clinical Summary ---
:1960 Author Organization [facility] Address [address] [place] [address] Care Team Providers Name Role Phone Cassie Velez ELECTRONIC EQUIPMENT MAINT TECH Primary Care Provider Social History Tobacco Use Types Packs/Day Years Used Date Never Assessed Sex Assigned at Date Recorded Not on file Plan of Treatment Health Maintenance Due Date Last Done Comments COVID-19 Vaccine (1) 1974 Insurance Payer Benefit Plan / Subscriber ID Effective Dates Phone Addre ss Type Group [facility] [id number] 2018-Present [address] [place] [address] Hiral Lucas Personal/Family Self 1960 [address] (Home) [facility] [phone] [employer] (Work) [phone] Hiral Lucas Personal/Family Self 1960 [address] (Home) [facility] [phone] [employer] (Work) [phone] Hiral Lucas Personal/Family Self 1960 [address] (Home) [facility] [phone] [employer] (Work) [phone] Hiral Lucas Personal/Family Self 1960 [address] (Home) [facility] [phone] [place] [place] (Work) [phone] Care Teams Resort Host Relationship Specialty Start Date End Date Cassie Velez, ELECTRONIC EQUIPMENT MAINT TECH PCP - General 06/15/[address] [place] [address]
--- OUTSIDE RECORDS SUMMARY | 2022-07-06 00:09 | XMS_ITS | Encounter Summary ---
:1960 Author Organization [facility] Address [address] [place] [address] Care Team Providers Name Role Phone Unavailable Primary Care Provider Unavailable Encounter Details Date Type Department Care Team Description 12/29/2001 Results Only [facility] - Caren Miller NP conversion [address] [place] [address] Social History Tobacco Use Types Packs/Day Years Used Date Never Assessed Sex Assigned at Date Recorded Not on file documented as of this encounter Plan of Treatment Not on filedocumented as of this encounter Procedures Procedure Name Priority Date/Time Associated Diagnosis Comme nts CYTOPATHOLOGY Routine 12/29/2001 0:00 EST Results for this procedure are i n the results section . documented in this encounter Results CYTOPATHOLOGY (12/29/2001 0:00 EST) Pathology Report: CYTOPATHOLOGY REPORT [facility] Reports generated via electronic interface contain christiano ginal data; however they are lacking the format of the original re port. Caution should be taken when reading/interpreting unfo rmatted reports. Name: ? HIRAL LUCAS ? Accession #: ? [id number] : ? 1960 (Age: 41) ??F ?Collect Date: ? 12/19 Location: ? [facility] ? Receive Date : ? 12/31/2001 Provider: ?CAREN WALLACE MILK ROUTE SUPERVISOR Copy to: ? Specimen/Source: ?ThinPrep Pap Test, Cervix/ Endocervix Last Menstrual Period: ? 12/22/01 Previous Gynecologic Pathology: ? ASC-US: , , Benign cellular changes: , ? SPECIMEN ADEQUACY ? Satisfactory for Evaluation - transformation zone component present GENERAL CATEGORIZATION ? Negative for Intraepithelial Lesion or Malignan cy INTERPRETATION ? Reactive cellular ct nges associated with inflammation present (includes repair). ? Document reviewed and electronically signed by: ? DYAN ASIF MD ? Report Date: ??01/07/2002 09:01 End of Report Specimen Performing Organization Address City/State/ZIP Code Phon e Number [facility] [address] [place] [address] SERVICES [facility] [address] [place] [address] documented in this encounter Visit Diagnoses Not on filedocumented in this encounter
--- OUTSIDE RECORDS SUMMARY | 2022-07-06 00:09 | XMS_ITS | Encounter Summary ---
:1960 Author Organization [facility] Address [address] [place] [address] Care Team Providers Name Role Phone Unavailable Primary Care Provider Unavailable Encounter Details Date Type Department Care Team Description 05/15/[address] [facility] Shaye Brown, SPECIAL EFFECTS TECHNICIAN Laboratory Services - [address] [address] [place] [address] [phone] Social History Tobacco Use Types Packs/Day Years Used Date Never Assessed Sex Assigned at Date Recorded Not on file documented as of this encounter Plan of Treatment Not on filedocumented as of this encounter Procedures Procedure Name Priority Date/Time Associated Comments Diagnosis HPV DETECTION, HIGH Routine 05/15/2010 14:30 Resu lts for this RISK TYPES EDT procedure are i n the results section. CYTOPATHOLOGY Routine 05/15/2010 0:00 Results for this EDT procedure are i n the results section. documented in this encounter Results HUMAN PAPILLOMA VIRUS DNA TEST (05/15/2010 14:30 EDT) Specimen Description Cervix, ThinPrep [facility] vial Result Negative for HPV [facility] types 16, 18, 31, 33, 35, 39, 45, 51, 52, 56, 58, 59, and 68. Report Status Final [facility] 05/24/2010 Specimen Performing Organization Address City/State/ZIP Code Phon e Number [facility] [address] [place] [address] SERVICES [facility] [address] [place] [address] CYTOPATHOLOGY (05/15/2010 0:00 EDT) Pathology Report: CYTOPATHOLOGY REPORT ? [facility] ? LAB Reports generated via electr Moxie interface contain original data; ? however they are lacking the format of the original report. ? Caution should be taken when reading/interpreting unformatted reports. ? Name: ? HIRAL LUCAS ? Accession #: ? [id number] ? : ? 1960 (Age: 49) ??F ?Collect Date: ? 05/15/2010 ? Location: ? [facility] ? Receive Date: ? 05/16/2010 ? Provider: ?DESTINY L R OBINSON SPECIAL EFFECTS TECHNICIAN ? Copy to: ? Specimen/Source: ? Pap Test, Cervix, ThinPrep Imaging System with manual ?? evaluation ? Last Menstrual Period: ? 6/16/10 ? Other: ? HPVDX - HPV testing requeste d regardless of diagnosis on current ThinPrep Pap ?? test. ? SPECIMEN ADEQUACY ? Satisfactory for Eval uation ? - transformation zone compon ent present ? GENERAL CATEGORIZATION ? Other, see interpreta tion ? INTERPRETATION ? Endometrial cells pre sent in a woman equal to or greater than age 40. ? Negative for Intraepithelial Lesion. ? EDUCATIONAL NOTES/RECOMMENDA TIONS ? Benign appearing endo metrial cells on Pap tests are usually a normal ? finding in women with regula r menstrual cycles, especially if the Pap test was ?? collected during the first h long term of the menstrual cycle. ? There is data showing that e ndometrial cells on Pap tests may be associated with endometrial/uterine abnormal ities in post menopausal women or in perimenopausal women with abnormal bleeding . ? There is limited data on the significance of benign endometrial cells in post ?? menopausal women on HRT. ??C linical correlation is recommended. ? Note: ??The Pap test is not an accurate test for the screening of endometrial ? lesions and should not be us ed as a follow up in patients with clinical ? suspicion of endometrial pat hology. ? Document reviewed and electr onically signed by: ? Vera [place]erville,CT(ASCP) ? Report Date: ??2009 11:18 ? End of Report ? Specimen Performing Organization Address City/State/ZIP Code Phon e Number [facility] [address] [place] [address] SERVICES [facility] [address] [place] [address] documented in this encounter Visit Diagnoses Not on filedocumented in this encounter
--- OUTSIDE RECORDS SUMMARY | 2022-07-06 00:09 | XMS_ITS | Encounter Summary ---
:1960 Author Organization [facility] Address [address] [place] [address] Care Team Providers Name Role Phone Temo Nunez MD Primary Care Provider [phone] Encounter Details Date Type Department Care Team Description 03/06/2019 Hospital Encounter [facility]- Marlen Unknown, Provider, [facility] [address] [facility] [phone] [place] [address] (Work) [phone] Social History Tobacco Use Types Packs/Day Years Used Date Never Assessed Sex Assigned at Date Recorded Not on file documented as of this encounter Discharge Disposition Disposition Code Departure Means Destination Auto Discharge Home documented in this encounter Plan of Treatment Not on filedocumented as of this encounter Visit Diagnoses Not on filedocumented in this encounter Care Teams Ships Equipment Engineer Relationship Specialty Start Date End Date Temo Nunez MD PCP - General 10/15/14 06/14/20 documented as of this encounter
--- OUTSIDE RECORDS SUMMARY | 2022-07-06 00:09 | XMS_ITS | Encounter Summary ---
:1960 Author Organization [facility] Address [address] [place] [address] Care Team Providers Name Role Phone Charla Velezn Willi JUKEBOX ROUTE DRIVER Primary Care Provider Encounter Details Date Type Department Care Team Description 06/15/2020 Lab Requisition [facility] Kristopher Maloney MD Encounter for other Pathology & [address] [facility] general examination Laboratory Medicine [facility] [id number] [address] [facility] [phone] [place] [address] (Work) [phone] Social History Tobacco Use Types Packs/Day Years Used Date Never Assessed Sex Assigned at Date Recorded Not on file documented as of this encounter Plan of Treatment Not on filedocumented as of this encounter Procedures Procedure Name Priority Date/Time Associated Diagnosis Comme nts SURGICAL PATHOLOGY Today 06/15/2020 11:30 Encounter for othe r Results for this EDT general examination procedur e are in the results section. documented in this encounter Results SURGICAL PATHOLOGY (06/15/2020 11:30 EDT) Final Diagnosis A. ENDOCERVIX, CURETTAGE: [facility] Electronically - Scant fragments of benign endocervical epithelium. CENTER signed by Karen, - Fragments squamous epithelium with reactive atypia. See comment. LABORATORY Temo Torres MD on - Focal acute cervicitis. SERVICES at 1210 Attestation By the signature [facility] Electronica lly below, the attending CENTER signed by Karen, physician certifies LABORATORY Temo argueta MD on that they have 1) SERVICES 06/17/2020 at 1210 personally conducted a gross and/or microscopic examination of the described specimen(s), and/or personally interpreted the results of laboratory testing of the described specimen(s), and 2) personally rendered or confirmed the above diagnosis. Diagnosis Comment The endocervical [facility] curettage contains CENTER numerous detached LABORATORY fragments of squamous SERVICES epithelium with reactive atypia including a few mitotic figures. In addition several fragments contain acute inflammatory cells. Clinical History + HPV; hx [facility] Gross Description A. Received in formalin labe lled with proper patient identification (initials B, N) and ECC is clear viscous material that measures no greater than 0.2 x 0.1 x 0.1 cm. Submitted intact in A1. [facility] Rodrigo Arellano 06/16/2020 9:20 Scanned Images [facility] SERVICES Specimen Tissue - Entire endocervix (body structu re) Performing Organization Address City/State/ZIP Code Phon e Number [facility] [address] [place] [address] SERVICES documented in this encounter Visit Diagnoses Diagnosis Encounter for other general examination documented in this encounter Care Teams Product Merchandiser Relationship Specialty Start Date End Date Cassie Velez FNP PCP - General 06/15/[address] [place] [address] documented as of this encounter
--- OUTSIDE RECORDS SUMMARY | 2022-07-06 00:09 | XMS_ITS | Encounter Summary ---
:1960 Author Organization [facility] Address [address] [place] [address] Care Team Providers Name Role Phone Unavailable Primary Care Provider Unavailable Encounter Details Date Type Department Care Team Description 04/04/2006 Results Only [facility] - Meaghan Stoddard son, Jasmin L, MANUFACTURING TEACHER conversion [address] [place] [phone] (Wo rk) Social History Tobacco Use Types Packs/Day Years Used Date Never Assessed Sex Assigned at Date Recorded Not on file documented as of this encounter Plan of Treatment Not on filedocumented as of this encounter Procedures Procedure Name Priority Date/Time Associated Diagnosis Comme nts CYTOPATHOLOGY Routine 04/04/2006 0:00 EDT Results for this procedure are i n the results section . documented in this encounter Results CYTOPATHOLOGY (04/04/2006 0:00 EDT) Pathology Report: CYTOPATHOLOGY REPORT [facility] Reports generated via electronic interface contain christiano ginal data; however they are lacking the format of the original re port. Caution should be taken when reading/interpreting unfo rmatted reports. Name: ? HIRAL LUCAS ? Accession #: ? [id number] : ? 1960 (Age: 45) ??F ?Collect Date: ? 03/18 Location: ? [facility] ? Receive Date : ? 04/08/2006 Provider: ?JASMIN ALAN MANUFACTURING TEACHER Copy to: ? Specimen/Source: ? ThinPrep Pap Test, Cervix, processed on [facility] ThinPrep Imaging System, with manual evaluation Last Menstrual Period: ? 03/20/06 Other: ? Additional clinical information: Cervical polyp HPVA - HPV testing requested if ASC-US on the current ThinPrep Pap test. ? SPECIMEN ADEQUACY ? Satisfactory for Evaluation - transformation zone component present GENERAL CATEGORIZATION ? Negative for Intraepithelial Lesion or Malignan cy ? Document reviewed and electronically signed by: ? CORNELIA Cho(ASCP) ? Report Date: ??04/09/2006 10:18 End of Report Specimen Performing Organization Address City/State/ZIP Code Phon e Number [facility] [address] [place] [address] SERVICES [facility] [address] [place] [address] documented in this encounter Visit Diagnoses Not on filedocumented in this encounter
--- OUTSIDE RECORDS SUMMARY | 2022-07-06 00:09 | XMS_ITS | Encounter Summary ---
:1960 Author Organization [facility] Address [address] [place] [address] Care Team Providers Name Role Phone Unavailable Primary Care Provider Unavailable Encounter Details Date Type Department Care Team Description 09/23/2014 Results Only [facility]- Destiny Rucker, HISTOPATHOLOGIST [address], [place] [id number] (Wo rk) Social History Tobacco Use Types Packs/Day Years Used Date Never Assessed Sex Assigned at Date Recorded Not on file documented as of this encounter Plan of Treatment Not on filedocumented as of this encounter Procedures Procedure Name Priority Date/Time Associated Diagnosis Comme nts PAP TEST- RESULT Routine 09/23/2014 0:00 EST Resu lts for this ONLY procedure are i n the results section. documented in this encounter Results PAP TEST- RESULT ONLY (09/23/2014 0:00 EST) Pathology Report: CYTOPATHOLOGY REPORT [facility] Reports generated via electronic interface contain christiano ginal data; SERVICES however they are lacking the format of the original re port. Caution should be taken when reading/interpreting unfo rmatted reports. Name: ? HIRAL LUCAS ? Accession #: ? [id number] ? : ? 1960 (Age: 53) ??F ?Collect Da te: ? 09/23/2014 ? Location: ? [facility] ? Receive Date: ? 014 ? Provider: DESTINY LI HISTOPATHOLOGIST Copy to: ? Final Report SPECIMEN ADEQUACY ? Satisfactory for Evaluation - transformation zone component present - scant squamous epithelial component GENERAL CATEGORIZATION ? Negative for Intraepithelial Lesion or Malignan cy INTERPRETATION ? Reactive cellular ct nges associated with inflammation present (includes repair). Comment: ? The cell sample is atrophic. ? Last Menstrual Period: 12/2013 Previous Gynecologic Pathology: HPV: + 2012 Other: Additional clinical information: 2004 polyp, 20 13 Pap neg Specimen/Source: ??Pap Test, Endocervix, ThinPrep Imag ing System with manual evaluation Document reviewed and electronically signed by: ? VICTORIANO NATION MD [facility] ? Report ??Date: 10/04/2014 17:35 HPV with Pap Test ? Date Ordered: ? 10/04/2014 ? Status: ?? Signed Out ?Date Complete: ? 10/06/2014 ? By: ??S ystem Interface ? Date Reported: ? 10/06/2014 ? Interpretation RESULT: Negative for HPV. No E6 or E7 mRNA is detected from HPV types 16,18,31,3 3,35, 39,45,51,52,56,58,59,66, and 68 by casting machine operator helper media diana amplification. Comments Document reviewed and electronically signed by: ? System Interface ? Report date: 10/06/2014 By the signature above, the attending physician certif ies that he/she has personally conducted a gross and/or microscopic examin ation of the described specimens and rendered or confirmed the above diagnosi s. End of Report Specimen Performing Organization Address City/State/ZIP Code Phon e Number [facility] [address] [place] [address] SERVICES documented in this encounter Visit Diagnoses Not on filedocumented in this encounter
--- OUTSIDE RECORDS SUMMARY | 2022-07-06 00:09 | XMS_ITS | Encounter Summary ---
:1960 Author Organization [facility] Address [address] [place] [address] Care Team Providers Name Role Phone Temo Nunez MD Primary Care Provider [phone] Encounter Details Date Type Department Care Team Description 03/06/2019 Results Only [facility]- Cassie Ross, [facility] [phone] [address] [place] [phone] (Wo rk) Social History Tobacco Use Types Packs/Day Years Used Date Never Assessed Sex Assigned at Date Recorded Not on file documented as of this encounter Plan of Treatment Not on filedocumented as of this encounter Procedures Procedure Name Priority Date/Time Associated Diagnosis Comme nts PAP TEST- RESULT Routine 03/06/2019 0:00 EDT Resu lts for this ONLY procedure are i n the results section. documented in this encounter Results PAP TEST- RESULT ONLY (03/06/2019 0:00 EDT) Pathology CYTOPATHOLOGY REPORT [facility] Report: [facility] Reports generated via electronic interface contain christiano ginal data; SERVICES however they are lacking the format of the original re port. Caution should be taken when reading/interpreting unfo rmatted reports. Name: ? HIRAL LUCAS ? Accession #: ? [id number] ? : ? 1960 (Age: 58) ??F ?Collect Date: ? 03/06/2019 ? Location: ? [facility] ? Receive Date: ? 03/09/20 19 ? Provider: CASSIE ROSSI GEM STONE CUTTER Copy to: ? Final Report SPECIMEN ADEQUACY ? Satisfactory for Evaluation - transformation zone component present GENERAL CATEGORIZATION ? Epithelial Cell Abnormality INTERPRETATION ? Squamous Cell Abnormality - Low grade squamous intraepithelial lesion (LSIL). EDUCATIONAL NOTES/RECOMMENDATIONS ? [facility] recommends foll owing ASCCP's 2012 Updated Consensus Guidelines for the Management of Abnormal Cervical Cancer Screening T ests and Cancer Precursors (JLGTD, 2013; 17(5):S1-S27). ??Conse nsus guidelines are available online at www.asccp.org. Case reviewed at [facility] Con[facility] Last Menstrual Period: 2016 Other: Additional clinical information: Z12.4 Z11.51 Specimen/Source: ??Pap Test, Cervix, ThinPrep Imaging System with manual evaluation Document reviewed and electronically signed by: ? JEANNA CRUM MD ? Report ??Date: 03/12/2019 15:45 HPV with Pap Test ? Date Ordered: ? 03/12/2019 ? Status: ?? Signed Out ?Date Complete: ? 03/16/2019 ? By: ??Sy stem Interface ? Date Reported: ? 03/16/2019 ? Interpretation RESULT: POSITIVE FOR HIGH OR INTERMEDIATE RISK HPV. E6 OR E7 mRNA from one or more types of HPV types 16,1 8,31, 33,35,39,45,51,52,56,58,59,66, and 68 is detected by airworthiness safety inspector mediated amplification. High and intermediate risk HPV types are associated wi th most squamous intraepithelial lesions and cervical can cers. Comments Document reviewed and electronically signed by: ? System Interface ? Report date: 03/16/2019 By the signature above, the attending physician certif ies that he/she has personally conducted a gross and/or microscopic examin ation of the described specimens and rendered or confirmed the above diagnosi s. End of Report Specimen Performing Organization Address City/State/ZIP Code Phon e Number [facility] [address] [place] [address] SERVICES documented in this encounter Visit Diagnoses Not on filedocumented in this encounter Care Teams Farmworker Bulbs Relationship Specialty Start Date End Date Temo Nunez MD PCP - General 10/15/14 06/14/20 documented as of this encounter
--- OUTSIDE RECORDS SUMMARY | 2022-07-06 00:09 | XMS_ITS | Encounter Summary ---
:1960 Author Organization [facility] Address [address] [place] [address] Care Team Providers Name Role Phone Unavailable Primary Care Provider Unavailable Encounter Details Date Type Department Care Team Description 01/26/2009 Before PRISM [facility] - Jean Carlos Stinson MD Converted Visit [place] conversion [address] ([place]) [address] [place], [place] [id number] [place] [phone] Social History Tobacco Use Types Packs/Day Years Used Date Never Assessed Sex Assigned at Date Recorded Not on file documented as of this encounter Plan of Treatment Not on filedocumented as of this encounter Procedures Procedure Name Priority Date/Time Associated Diagnosis Comme [facility] SURGICAL PATHOLOGY Routine 01/26/2009 0:00 EDT Re sults for this procedure are i n the results section. documented in this encounter Results SURGICAL PATHOLOGY (01/26/2009 0:00 EDT) Pathology Report: SURGICAL PATHOLOGY REPORT ? [facility] Reports generated via electr Kitani interface contain original data; ? LAB however they are lacking the format of the original report. ? Caution should be taken when reading/interpreting unformatted reports. ? Name: ? CLAUDIA, HIRAL ? Accession #: ? [id number] ? : ? 1960 (Age: 48) ??F ? Collec t Date: ? 01/26/2009 ? Location: ? [facility] ? Re ceive Date: ? 01/27/2009 ? Provider: QUINTIN STINSON MD ? Copy to: DESTINY L ALAN N P ? Final Pathologic Diagnosis: ? A. ?Endometrium , biopsy: ? 1. ?Late secret ory endometrium. ? B. ?Endocervix, polyp, biopsy: ? 1. ?Endocervica l polyp. ? Document reviewed and electr onically signed by: ? Marge Florez, MBChB ? Report ??Date: 02/01/2009 17 :23 ? By the signature above, the attending physician certifies that he/she has ? personally conducted a gross and/or microscopic examination of the described ? specimens and rendered or co nfirmed the above diagnosis. ? Specimen(s) Received: ? A. ?Endometrial biopsy ? B. ? Cervical polyp ? Clinical History: ? Hypermenorrhea; clini darius diagnosis code: ??626.2 ? Gross Description: ? Received in formalin labelled Brown and EMB is a 1.5 x 1.0 x 0.3 cm ? aggregate of peace-brown soft tissue. ??The specimen is entirely submitted as (A) ?? following filtration. ? Received in formalin nena d Brown and cervical polyp are two irregular ? fragments of peace-brown soft tissue measuring 0.4 x 0.3 x 0.2 cm and 0.4 x 0.4 x 0.1 cm. ??The specimen is guerrero bmitted intact as (B). ??(Anne Pichardo)/matthew ? End of Report ? Specimen Performing Organization Address City/State/ZIP Code Phon e Number [facility] [address] [place] [phone] SERVICES [facility] [address] [place] [address] documented in this encounter Visit Diagnoses Not on filedocumented in this encounter
--- OUTSIDE RECORDS SUMMARY | 2022-07-06 00:10 | XMS_ITS | Encounter Summary ---
:[address] [facility] Address [address] [place] [address] Care Team Providers Name Role Phone Unavailable Primary Care Provider Unavailable Encounter Details Date Type Department Care Team Description 11/16/1999 Results Only [facility] - Caren Miller NP conversion [address] [place] [address] Social History Tobacco Use Types Packs/Day Years Used Date Never Assessed Sex Assigned at Date Recorded Not on file documented as of this encounter Plan of Treatment Not on filedocumented as of this encounter Procedures Procedure Name Priority Date/Time Associated Diagnosis Comme nts CYTOPATHOLOGY Routine 11/16/1999 8:52 EST Results for this procedure are i n the results section . documented in this encounter Results CYTOPATHOLOGY (11/16/1999 8:52 EST) Pathology Report: CYTOPATHOLOGY REPORT [facility] Reports generated via electronic interface contain christiano ginal data; however they are lacking the format of the original re port. Caution should be taken when reading/interpreting unfo rmatted reports. Name: ? HIRAL LUCAS ? Accession #: ? [id number] : ? 1960 (Age: 39) ??F ?Collect Date: ? 10/20 Location: ?Receive Date: ? 11/16/1999 Provider: ?CAREN WALLACE NP Copy to: ?CAREN WALLACE NP ? Specimen/Source: ?Gre Instructor ThinPrep Last Menstrual Period: ? GYNECOLOGIC ??CYTOPATHOLOG Y ??REPORT Name: HIRAL MEDRANO ? FA HC : 1960 ?? 39Y F ?Client ID: [id number] SS#: ? Clinician: MADISON SANDERSON, WILNER ?? Location: [facility] ??Copy to: ?? Specimen: ?Gre Instructor ThinPrep ? Source: Cervix/Endocervix ?Collected: 11/15/99 ? Received: 11/16/1999 ?LMP: 11/06/99 ? Hormone Therapy: No ? : No ? Radiation Therapy: No ?? Post : No ?Chemotherapy: No ?IUD: No ? Prev Abnormal Pap: Yes ?? Clinical Hx: ASCUS, favor reactive. 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 ASCUS favor reactive process. ?(Blank sky indicate information not provided on requisition) SPECIMEN ADEQUACY: ? Satisfactory For Evaluation ?? GENERAL CATEGORIZATION: ? BENIGN CELLULAR CHANGES ?? DESCRIPTIVE DIAGNOSIS: ? Reactive Cellular Changes Associated With Infla mmation Present ? (Includes Repair) ? Reviewed And Electronically Signed By: ? Natalie holley M.D. ? Report Date : ?? 11/23/1999 [facility] Archived Tests - Final Diagnosis Text Field: Clinical History : ; ASCUS, favor reactive. Hx Dy splasia 1990. Cryo therapy. ASCUS favor reactive process. ? Document reviewed and electronically signed by: ? Conversion ? Report Date: ??11/23/1999 00:00 End of Report Specimen Performing Organization Address City/State/ZIP Code Phon e Number [facility] [address] [place] [address] SERVICES [facility] [address] [place] [address] documented in this encounter Visit Diagnoses Not on filedocumented in this encounter
--- OUTSIDE RECORDS SUMMARY | 2022-07-06 00:10 | XMS_ITS | Encounter Summary ---
:1960 Author Organization [facility] Address [address] [place] [address] Care Team Providers Name Role Phone Unavailable Primary Care Provider Unavailable Encounter Details Date Type Department Care Team Description 07/03/2000 Results Only [facility] - Caren Miller NP conversion [address] [place] [address] Social History Tobacco Use Types Packs/Day Years Used Date Never Assessed Sex Assigned at Date Recorded Not on file documented as of this encounter Plan of Treatment Not on filedocumented as of this encounter Procedures Procedure Name Priority Date/Time Associated Diagnosis Comme nts CYTOPATHOLOGY Routine 07/03/2000 0:00 EDT Results for this procedure are i n the results section . documented in this encounter Results CYTOPATHOLOGY (07/03/2000 0:00 EDT) Pathology Report: CYTOPATHOLOGY REPORT [facility] Reports generated via electronic interface contain christiano ginal data; however they are lacking the format of the original re port. Caution should be taken when reading/interpreting unfo rmatted reports. Name: ? HIARL LUCAS ? Accession #: ? [id number] : ? 1960 (Age: 39) ??F ?Collect Date: ? 06/18 Location: ? [facility] ? Receive Date : ? 07/05/2000 Provider: ?CAREN WALLACE SHOW HORSE DRIVER Copy to: ? Specimen/Source: ?ThinPrep Pap Test, Cervix/ Endocervix Last Menstrual Period: ? 06/09/00 Previous Gynecologic Pathology: ? ASC-US: Favor Reactive , Benign cellular changes: Associated with inflammation Other: ? Additional clinical information: 1990 Hx of dysplasia, WNL ? SPECIMEN ADEQUACY ? Satisfactory for evaluation. GENERAL CATEGORIZATION ? Benign Cellular Changes DESCRIPTIVE DIAGNOSIS ? Reactive cellular ct nges associated with inflammation present (includes repair). Predominance of coccobacilli present consistent with s hift in vaginal theodore. ? Document reviewed and electronically signed by: ? VICTORIANO NATION MD [facility] ? Report Date: ??07/11/2000 15:21 End of Report Specimen Performing Organization Address City/State/ZIP Code Phon e Number [facility] [address] [place] [address] SERVICES [facility] [address] [place] [address] documented in this encounter Visit Diagnoses Not on filedocumented in this encounter
--- OUTSIDE RECORDS SUMMARY | 2022-07-06 00:10 | XMS_ITS | Encounter Summary ---
:1960 Author Organization [facility] Address [address] [place] [address] Care Team Providers Name Role Phone Unavailable Primary Care Provider Unavailable Encounter Details Date Type Department Care Team Description 03/06/2000 Results Only [facility] - Caren Miller NP conversion [address] [place] [address] Social History Tobacco Use Types Packs/Day Years Used Date Never Assessed Sex Assigned at Date Recorded Not on file documented as of this encounter Plan of Treatment Not on filedocumented as of this encounter Procedures Procedure Name Priority Date/Time Associated Diagnosis Comme nts CYTOPATHOLOGY Routine 03/06/2000 13:42 EDT Result s for this procedure are i n the results section . documented in this encounter Results CYTOPATHOLOGY (03/06/2000 13:42 EDT) Pathology Report: CYTOPATHOLOGY REPORT [facility] Reports generated via electronic interface contain christiano ginal data; however they are lacking the format of the original re port. Caution should be taken when reading/interpreting unfo rmatted reports. Name: ? HIRAL LUCAS ? Accession #: ? [id number] : ? 1960 (Age: 39) ??F ?Collect Date: ? 02/16 Location: ?Receive Date: ? 03/06/2000 Provider: ?CAREN WALLACE NP Copy to: ?CAREN WALLACE NP ? Specimen/Source: ?Quality Rep ThinPrep Last Menstrual Period: ? GYNECOLOGIC ??CYTOPATHOLOG Y ??REPORT Name: MITCHELLHIRAL Mcmahan ? FA HC : 1960 ?? 39Y F ?Client ID: [id number] SS#: ? Clinician: MADISON SANDERSON, WILNER ?? Location: [facility] ??Copy to: ?? Specimen: ?Quality Rep ThinPrep ? Source: Cervix/Endocervix ?Collected: 03/04/00 ? Received: 03/06/2000 ?LMP: 02/07/00 ? Hormone Therapy: No ? : No ? Radiation Therapy: No ?? Post : No ?Chemotherapy: No ?IUD: No ? Prev Abnormal Pap: Yes ?? Clinical Hx: Hx of Dysplasia 1990, Cryo. ASCUS f avor ? reactive. ASCUS favor reactiv e process. Benign ? Cellular Changes associated with in flammation. ?(Blank sky indicate information not provided on requisition) SPECIMEN ADEQUACY: ? Satisfactory For Evaluation ?? GENERAL CATEGORIZATION: ? WITHIN NORMAL LIMITS ? Reviewed And Electronically Signed By: ? Zachariah Watson er, Jr., CT(ASCP) ? Estephania phelps, CT(ASCP) ? Report Date : ?? 03/12/2000 [facility] Archived Tests - Final Diagnosis Text Field: Clinical History : ;Hx of Dysplasia 1990, Cryo. ASCUS favor reactive. ASCUS favor reactive process. Benign Cellular Ch anges associated with inflammation. ? Document reviewed and electronically signed by: ? Conversion ? Report Date: ??03/12/2000 00:00 End of Report Specimen Performing Organization Address City/State/ZIP Code Phon e Number [facility] [address] [place] [address] SERVICES [facility] [address] [place] [address] documented in this encounter Visit Diagnoses Not on filedocumented in this encounter
--- NOTE | 2022-07-06 06:30 | DI.MAMMO_ITS ---
Exam(s) MAMMO SCREENING EXAM: MAMMO SCREENING CLINICAL HISTORY: screening,z12.39 TECHNIQUE: Mammograms were interpreted according to the usual protocol including computer analysis w [employer] CAD system, tomosynthesis and C-view imaging. COMPARISON: 2012 through 2020 FINDINGS: The breasts are composed of scattered fibroglandular densities, Breast Density category B. No suspicious masses or suspicious microcalcifications are seen. No skin thickening or abnormal axillary lymph nodes are seen. There has been no significant change from prior exams. IMPRESSION: BI-RADS Category 1, Negative mammogram Yearly screening mammography is recommended. Breast Density - Category B, scattered fibroglandular densities. A negative radiographic report should not delay biopsy if a dominant or clinically suspicious mass is present. Up to ten percent of cancers are not identified on mammography. A negative report may reinforce clinical impression. Adenosis and dense breasts may obscure an underlying neoplasm. False positive reports average 6 to 10%. Patient will receive a letter notifying them of these results.
== END ==
PROVIDERS: PCP Nurse Practitioner Family; Visit Provider Nurse Practitioner
DX: Z12.31 Encounter for screening mammogram for malignant neoplasm of breast (principal)
CPT/HCPCS: 77063; 77067

== ENCOUNTER 2022-07-06 09:47 | Outpatient (REF) | payer BC, SELFPAY ==
--- NOTE | 2022-07-06 09:10 | PAPFT_PTH ---
PATIENT: Hiral Lucas LOC: [facility] U#:[id number] AGE/SX: 61/F ROOM: RE07/06/[address]: KEVEN Gudino : 1960 BED: DIS: 07/06/2022 SPEC #: [id number] RECD: 07/06/22 12:49 STATUS: GENESIS REQ #: [id number] ESME: 07/06/22 09:[address]: Laury Moses DEPT: [facility] Cytology RECD BY: Chantelle Justice ENTERED: 07/06/22 12:49 SP TYPE: PAPFT OTHR DR: Cassie Velez APRN Tissues: 1 - CX/ENDOCX FOR PAP SMEARS Procedures: PAP THIN PREP/[facility] Screening HPV DNA PROBE Comments: [id number]
== END 2022-07-06 09:48 | disposition home or self-care (01) ==
LOC: LBN 09:47
PROVIDERS: PCP Nurse Practitioner Family; Visit Provider Nurse Practitioner Family
DX: Z12.4 Encounter for screening for malignant neoplasm of cervix (principal); R87.611 Atypical squamous cells cannot exclude high grade squamous intraepithelial lesion on cytologic smear of cervix (ASC-H); Z11.51 Encounter for screening for human papillomavirus (HPV); R87.810 Cervical high risk human papillomavirus (HPV) DNA test positive; Z87.42 Personal history of other diseases of the female genital tract
CPT/HCPCS: 88142; 87624

== ENCOUNTER 2022-08-02 15:33 | Outpatient (REF) | payer BC, SELFPAY ==
--- NOTE | 2022-08-02 13:25 | CER_PTH ---
PATIENT: Hiral Luacs LOC: [facility] U#:[id number] AGE/SX: 61/F ROOM: RE08/02/[address]: Manuela Bee MD : 1960 BED: DIS: 08/02/2022 SPEC #: [id number] RECD: 08/02/22 18:17 STATUS: GENESIS SEVERINO #: [id number] ESME: 08/02/22 13:[address]: Manuela Bee DEPT: Surgical Specimen RECD BY: Chantelle Justice ENTERED: 08/02/22 18:18 SP TYPE: CER KIMANI DR: Cassie Velez APRN Tissues: 1 - CERVICAL BIOPSY 2 - ENDOCERVICAL BX/CURRETTE Procedures: GROSS AND MICRO LEVEL 4 Comments: [id number]
== END 2022-08-02 15:34 | disposition home or self-care (01) ==
LOC: LBN 15:33
PROVIDERS: PCP Nurse Practitioner Family; Visit Provider Obstetrics & Gynecology
DX: R87.611 Atypical squamous cells cannot exclude high grade squamous intraepithelial lesion on cytologic smear of cervix (ASC-H) (principal)
CPT/HCPCS: 88305

== ENCOUNTER 2023-03-02 18:49 | Emergency (ER) | payer BC, SELFPAY ==
[2023-03-02 18:57] VITALS: BP 168/97; PULSE 106; RESP 16; TEMP 36.7; O2SAT 97
--- NOTE | 2023-03-02 19:00 | DI.RAD_ITS ---
Exam(s) XR WRIST LT COMPLETE EXAM: XR WRIST LT COMPLETE CLINICAL HISTORY: left wrist pain. TECHNIQUE: 2D digital imaging was performed. COMPARISON: No exams were available for comparison FINDINGS: 3 views No evidence of acute fracture or dislocation nor significant ulnar variance. Scaphoid and scapholuna te distance normal. No osseous lesions. IMPRESSION: No acute findings. DATA REPOSITORY: RADIATION DOSE DELIVERED:
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
--- NOTE | 2023-03-02 19:49 | DI.VRAD_ITS ---
PROCEDURE INFORMATION: Exam: XR Left Wrist Exam date and time: 03/02/2023 7:13 PM Age: 62 years old Clinical indication: Other: Left wrist pain TECHNIQUE: Imaging protocol: Radiologic exam of the left wrist. Views: 3 or more views. COMPARISON: No relevant prior studies available. FINDINGS: Bones/joints: Normal. Soft tissues: Normal. IMPRESSION: No acute findings. Dictated and Authenticated by: Matt Morales MD. Ordering:VIGNESH Lockhart MD
== END 2023-03-02 19:33 | disposition home or self-care (01) ==
PROVIDERS: Emergency Provider Physician Assistant; PCP Nurse Practitioner Family
DX: S66.912A Strain of unspecified muscle, fascia and tendon at wrist and hand level, left hand, initial encounter (principal); W19.XXXA Unspecified fall, initial encounter
CPT/HCPCS: 99283; 73110

== ENCOUNTER 2023-05-27 01:07 | Outpatient (CLI) | payer BC, SELFPAY ==
--- NOTE | 2023-05-27 06:30 | DI.MAMMO_ITS ---
Exam(s) MAMMO SCREENING EXAM: MAMMO SCREENING CLINICAL HISTORY: screening,z12.39. TECHNIQUE: Bilateral full field digital CC and MLO mammographic images were obtained with 3D tomosyn thesis and utilizing computer aided detection (CAD). COMPARISON: Prior mammograms were reviewed. FINDINGS: There are no new significant radiograph findings in the right breast. In the left breast there is an asymmetric density measuring 4 x 4 mm located slightly lateral of cent er on the CC view approximately 5 cm in from the nipple. Similar size asymmetric density also seen o n the MLO view. There are no malignant-appearing microcalcification groups in this region nor elsewhere in either grecia ast. There is no significant architectural distortion nor skin thickening-retraction. IMPRESSION: 1. No radiographic evidence of malignancy in the right breast. 2. Asymmetric density-possible nodule in the left breast as described above. Spot compression left b reast views and ultrasound recommended. BI-RADS Category 0 - Assessment Incomplete: Need additional imaging evaluation Breast Density - Category B - Scattered areas of fibroglandular density Breast density Category C or D implies that the patient has dense breast tissue. Dense breast tissue can make it harder to find cancer on a mammogram. Dense breast tissue is also associated with an incr eased risk of breast cancer. This information about the result of the mammogram report was provided to the patient to raise their awareness. Use this report when you speak with the patient about their risks for breast cancer, which includes their family history. At that time, you may recommend additional screening tests (Ultrasoun d or MRI) as these tests may add significant information. A negative radiographic report should not delay biopsy if a dominant or clinically suspicious mass is present. Up to ten percent of cancers are not identified on mammography. A negative report may reinforce clinical impression. Adenosis and dense breasts may obscure an underlying neoplasm. False positive reports average 6 to 10%. Patient will receive a letter notifying them of these results.
== END 2023-05-27 01:27 ==
LOC: DI 01:08
PROVIDERS: PCP Nurse Practitioner Family; Visit Provider Nurse Practitioner
DX: Z12.31 Encounter for screening mammogram for malignant neoplasm of breast (principal); R92.8 Other abnormal and inconclusive findings on diagnostic imaging of breast
CPT/HCPCS: 77063; 77067

== ENCOUNTER 2023-05-30 01:10 | Outpatient (CLI) | payer BC, SELFPAY ==
--- NOTE | 2023-05-30 | DI.MAMMO_ITS ---
Exam(s) MAMMO SCREEN CALL BACK UNI US BREAST LT COMPLETE EXAM: MAMMO SCREEN CALL BACK UNI CLINICAL HISTORY: F/U MAMMO,LT ASYMMETRIC DENSITY,? NODULE. TECHNIQUE: Unilateral spot mammographic images obtained with 3D tomosynthesisand utilizing computer aided detection (CAD). . Complete left breast Ultrasound was also performed, including all 4 quadrants, the retroareolar regio n, and the ipsilateral axilla. COMPARISON: Prior mammograms were reviewed. This additional imaging was performed due to findings described on the recent screening mammogram of 05/27/2023. FINDINGS: DIAGNOSTIC MAMMOGRAM: Additional mammographic views performed todayrender this area less concerning. COMPLETE left BREAST ULTRASOUND: Ultrasound performed today reveals no evidence of solid or significant cystic lesions. Few upper nor mal size ducts in the retroareolar region are incidentally noted.. Scanning of the ipsilateral axilla reveals no significant adenopathy. IMPRESSION: 1. No radiographic evidence of malignancy in left breast. 2. No significant focal ultrasound findings in left breast. Appropriate follow-up is to keep this patient on a yearly mammogram schedule, with earlier imaging i f a self detected breast change is noted.. The patient was informed of these findings and recommendations prior to leaving the department today. BI-RADS Category 2 - Benign Findings Breast Density - Category B - Scattered areas of fibroglandular density Breast density Category C or D implies that the patient has dense breast tissue. Dense breast tissue can make it harder to find cancer on a mammogram. Dense breast tissue is also associated with an incr eased risk of breast cancer. This information about the result of the mammogram report was provided to the patient to raise their awareness. Use this report when you speak with the patient about their risks for breast cancer, which includes their family history. At that time, you may recommend additional screening tests (Ultrasoun d or MRI) as these tests may add significant information. A negative radiographic report should not delay biopsy if a dominant or clinically suspicious mass is present. Up to ten percent of cancers are not identified on mammography. A negative report may reinforce clinical impression. Adenosis and dense breasts may obscure an underlying neoplasm. False positive reports average 6 to 10%. Patient will receive a letter notifying them of these results.
== END 2023-05-30 01:30 ==
LOC: DI 01:10
PROVIDERS: PCP Nurse Practitioner Family; Visit Provider Nurse Practitioner
DX: Z12.31 Encounter for screening mammogram for malignant neoplasm of breast (principal); R92.8 Other abnormal and inconclusive findings on diagnostic imaging of breast
CPT/HCPCS: 76642; 77063; 77067

== ENCOUNTER 2023-06-05 13:39 | Outpatient (REF) | payer BC, SELFPAY ==
--- NOTE | 2023-06-05 11:00 | PAPFT_PTH ---
PATIENT: Hiral Lucas LOC: [facility] U#:[id number] AGE/SX: 62/F ROOM: RE06/05/[address]: Naomi Jim NP : 1960 BED: DIS: 06/05/2023 SPEC #: [id number] RECD: 06/05/23 15:03 STATUS: GENESIS SEVERINO #: [id number] ESME: 06/05/23 11:[address]: Naomi Jim NP DEPT: [facility] Cytology RECD BY: Eileen Godfrey ENTERED: 06/05/23 15:04 SP TYPE: PAPFT OTHR DR: Cassie Velez APRN Tissues: 1 - CX/ENDOCX FOR PAP SMEARS Procedures: PAP THIN PREP/UVM Screening HPV DNA PROBE Comments: [id number]
== END 2023-06-05 13:40 | disposition home or self-care (01) ==
LOC: LBN 13:39
PROVIDERS: PCP Nurse Practitioner Family; Visit Provider Nurse Practitioner Women's Health
DX: Z12.4 Encounter for screening for malignant neoplasm of cervix (principal); Z11.51 Encounter for screening for human papillomavirus (HPV); Z87.42 Personal history of other diseases of the female genital tract
CPT/HCPCS: 88142; 87624

== ENCOUNTER 2023-09-25 02:01 | Outpatient (CLI) | payer BC, SELFPAY ==
[2023-09-25 07:29] LABS: Abs Immature Grans 0.02 10^3/uL (0.0-0.06); Absolute Basophil Count 0.06 10^3/uL (0.0-0.2); Absolute Eosinophil Count 0.06 10^3/uL (0.0-0.7); Absolute Lymphocyte Count 1.63 10^3/uL (1.2-3.4); Absolute Monocyte Count 0.33 10^3/uL (0.1-0.8); Absolute Neutrophil Count 2.98 10^3/uL (1.2-6.7); Basophils % 1.2; Eosinophils % 1.2; HCT 48.9 % (36.0-46.0); Immature Grans % 0.4; Lymphocytes % 32.1; MCH 30.1 pg (27.0-33.0); MCHC 34.8 % (32.0-36.0); MCV 87 fL (80-95); MPV 8.9 fL (8.0-11.0); Monocytes % 6.5; Neutrophils % 58.6; Platelet Count 225 10^3/uL (130-400); RBC 5.65 10^6/uL (3.93-5.22); RDW-SD 38.4 fL; WBC 5.08 10^3/uL (4.4-10.8)
[2023-09-25 07:47] LABS: ALT 26 U/L (14-59); AST 22 U/L (15-37); Alkaline Phosphatase 99 U/L (46-116); Anion Gap 8.4 mmol/L (3-11); BUN 8 mg/dL (7-18); Bilirubin, Total 0.6 mg/dL (0.2-1.0); CO2 27.6 mmol/L (21.0-32.0); CREATININE 0.8 mg/dL (0.55-1.02); Calcium 9.3 mg/dL (8.5-10.1); Calculated LDL 115 mg/dL (<100); Chloride 106 mmol/L (98-107); Cholesterol 195 mg/dL (<200); Glucose 84 mg/dL (74-106); HDL Cholesterol 63 mg/dL (40-60); Potassium 3.7 mmol/L (3.5-5.1); Sodium 142 mmol/L (136-145); Total Protein 7.3 g/dL (6.4-8.2); Triglyceride 88 mg/dL (<150)
== END 2023-09-25 02:02 | disposition home or self-care (01) ==
LOC: LBO 02:01
PROVIDERS: Visit Provider Nurse Practitioner Family
DX: Z51.81 Encounter for therapeutic drug level monitoring (principal); E78.5 Hyperlipidemia, unspecified; I10 Essential (primary) hypertension
CPT/HCPCS: 36415; 80053; 80061; 85025

== ENCOUNTER 2023-10-04 03:01 | Outpatient (CLI) | payer BC, SELFPAY ==
[2023-10-04 14:59] LABS: Abs Immature Grans 0.01 10^3/uL (0.0-0.06); Absolute Basophil Count 0.06 10^3/uL (0.0-0.2); Absolute Eosinophil Count 0.11 10^3/uL (0.0-0.7); Absolute Lymphocyte Count 2.34 10^3/uL (1.2-3.4); Absolute Monocyte Count 0.38 10^3/uL (0.1-0.8); Absolute Neutrophil Count 3.44 10^3/uL (1.2-6.7); Basophils % 0.9; Eosinophils % 1.7; HCT 43.6 % (36.0-46.0); HGB 15.5 g/dL (11.2-15.7); Immature Grans % 0.2; Lymphocytes % 36.9; MCH 31.2 pg (27.0-33.0); MCHC 35.6 % (32.0-36.0); MCV 88 fL (80-95); MPV 9.3 fL (8.0-11.0); Neutrophils % 54.3; Platelet Count 217 10^3/uL (130-400); RBC 4.97 10^6/uL (3.93-5.22); RDW 12.4 % (11.7-14.6); RDW-SD 39.9 fL; WBC 6.34 10^3/uL (4.4-10.8)
== END 2023-10-04 03:02 | disposition home or self-care (01) ==
LOC: LBO 03:01
PROVIDERS: Visit Provider Nurse Practitioner
DX: R79.9 Abnormal finding of blood chemistry, unspecified (principal)
CPT/HCPCS: 36415; 85025

== ENCOUNTER 2023-11-14 09:57 | Day surgery (SDC) | payer BC, SELFPAY ==
--- NOTE | 2023-11-13 20:05 | W.PM.DSUDISC ---
Date of service: 11/14/23 Time of Service: 12:29 Discharge Plan Disposition Patient Disposition: Home Condition: Good Discharge Details Reason For Visit: Screening colonoscopy Attending Provider: Faustino Funez Primary Care Provider: Betina Courtney Home Meds and New Rx's Prescriptions: Continued acyclovir 400 mg tablet 400 mg PO BID Qty: 180 1RF Discontinued bisacodyl [Dulcolax (bisacodyl)] 5 mg tablet,delayed release (DR/EC) 5 mg PO ONCE Qty: 4 0RF Rx Instructions: Colonoscopy Bowel Prep- Per Instructions polyethylene glycol 3350 17 gram/dose powder 238 g PO ONCE Qty: 238 0RF Rx Instructions: Colonoscopy Bowel Prep- Per Instructions Discharge Instructions Additional Instructions: Hiral, we are able to complete your colonoscopy today without any difficulty. It was totally normal. You will need another colonoscopy in 10 years. 1. If tolerated, consume a soft, low fiber diet for 1-2 days. 2[address] Do not drive, drink alcohol, operate machinery, make critical decisions, or do activities that require coordination or balance for 24 hours. 3. Because air was put into your colon during the procedure, expelling air from your rectum (passing gas or farting) is normal. 4. You may not have a bowel movement for 1-3 days because of the colonoscopy prep. This is normal. 5. Go directly to the emergency room if you notice any of the following: Develop chills (warm to touch), or if you have a thermometer and your temperature is above 101 Difficulty breathing or difficultly swallowing Persistent vomiting Severe abdominal pain, other than gas cramps Severe chest pain Black, tarry stools Any bleeding ? exceeding one tablespoon 6. Call your physician if the site where your intravenous was started becomes red, swollen, painful, and warm to touch. 7. Your physician has reviewed your pre-procedure medications. Please continue to take those medications as previously ordered. You will be given specific information/education regarding any changes to your medications before leaving. Activity:: Activity as Tolerated Diet:: As Tolerated Discharge Orders Discharge Orders: Discharge Order (Routine); Ordered 11/13/23 Ordered By: Faustino Funez DS: Diagnosis Discharge Diagnosis (1) Screening for colorectal cancer: Status: Acute Asessment and Plan: Negative screening colonoscopy
--- NOTE | 2023-11-13 20:07 | W.COLOREPORT ---
Date of service: 11/14/23 Time of Service: : Colonoscopy Report Date of procedure: 11/14/23 Pre-op diagnosis general: Screening colonoscopy Post-op diagnosis procedure note: other (Negative screening colonoscopy) Procedure: Colonoscopy Surgeon: Faustino Funez Anesthesia Type: General:No Airway Estimated blood loss (mL): 0 Pathology: none sent Complications: None Disposition: same day Indications: Hiral is a 63-year-old woman who needs her second screening colonoscopy as part of routine health maintenance Prep: Miralax/Dulcolax Procedure Start Time: 12:01 Procedure End Time: 12:20 Retraction Time: 11 Findings: Negative screening colonoscopy Procedure Description: After the induction of monitored anesthetic care, and with the patient in left lateral decubitus position, I began by performing an external anorectal exam.? Perineum and skin were normal, as was the anal verge.? There was no evidence of external hemorrhoids.? Next, I performed a digital rectal exam.? I did not appreciate any abnormal findings.? Next, I advanced a colonoscope into the rectal vault.? I performed retroflexion.? This was normal.? Using insufflation, I then advanced the colonoscope beyond the rectal folds and into the sigmoid colon before advancing towards the cecum.?? The scope was noted to be in the cecum by identification of the ileocecal valve and appendiceal orifice.? I then began withdrawing the colonoscope using repeated irrigation as necessary for full evaluation of the colonic mucosa. ?Once the scope was withdrawn to the level of the rectum, great care was taken to examine portions of the rectal folds.? I did not see any signs of tumors, polyps, or any other worrisome abnormalities. Finally, the scope was withdrawn and the patient was brought to the same-day surgery recovery unit as the anesthetic wore off. ?The findings and instructions were shared with the patient prior to discharge. [place] Bowel Prep [place] Bowel Prep Right Colon: 3 Left Colon: 3 Transverse Colon: 3 Total Score: 9
[2023-11-14 10:00] VITALS: BP 151/98; PULSE 87; RESP 16; TEMP 36.1; O2SAT 97
[2023-11-14] MEDS: Lactated Ringers 1,000 ML 80 ML IV (10:25)
--- NOTE | 2023-11-14 11:22 | W.ANESPRE ---
General Info Date of Service Date Performed: 11/14/23 Height: 5 ft 4 in Weight: 70.1 kg Body Mass Index (BMI): 26.5 Surgical Procedure: Operation Date: 11/14/23 11:35 Proposed Procedure Side Surgeon he Funez MD Meds Allergies and Home Medications Allergies Allergy/AdvReac Type Severity Reaction Status Date / Time No Known Allergies Allergy Verified 11/14/23 10:17 Home Medication Medication Instructions Recorded acyclovir 400 mg tablet 400 mg PO BID suppression of HSV 02/18/23 #180 tab-caps Current Visit Medications: Current Medications Generic Name Dose Route Start Last Admin Trade Name Freq PRN Reason Stop Dose Admin Hyoscyamine Sulfate 0.125 mg 11/13/23 20:08 Hyoscyamine 0.125 Mg Sl/Oral/Chew SL 12/13/23 20:07 DIRECTED PRN Ringer's Solution 1,000 mls @ 80 mls/hr 11/14/23 06:00 11/14/23 10:25 IV 11/17/23 23:59 80 mls/hr INFUSION FLO Administration IV Miscellaneous Supplies 1 each 11/14/23 06:00 Iv Access IV 11/17/23 23:59 DIRECTED FLO Ondansetron HCl 4 mg 11/13/23 20:08 Ondansetron 4 Mg/2 Ml Vial IVP 12/13/23 20:07 Q4H PRN PRN Nausea / Vomiting Sodium Chloride 0 ml 11/14/23 06:00 Normal Saline Flush 10 Ml Syr IV 11/17/23 23:59 PRN PRN Sodium Chloride 0 ml 11/14/23 06:00 Normal Saline 10 Ml Vial IJ 11/17/23 23:59 DIRECTED PRN Sterile Water 0 ml 11/14/23 06:00 Water,Injection,Sterile 10 Ml Vial IJ 11/17/23 23:59 DIRECTED PRN PFSH Active Problems Active Problems: Problem Status Onset Code Screening for colorectal cancer Z12.11, Z12.12 Sensorineural hearing loss (SNHL) of both ears H90.3 Tinnitus, bilateral H93.13 Postmenopausal atrophic vaginitis N95.2 History of cervical dysplasia Z87.410 Low back pain M54.5 Multiple nevi D22.9 Hallux limitus, acquired M20.20 Hallux valgus, acquired, bilateral M20.11, M20.12 Fibrocystic disease of breast 06/17/08 N60.19 Positive test for human papillomavirus (HPV) Genital herpes simplex 05/05/09 A60.00 Hyperlipidemia, unspecified 03/06/18 E78.5 Medical History Medical History Endocervical polyp (10/12/14) Allergic rhinitis, unspecified (05/08/17) Foot pain, bilateral (09/23/14) Tarsals and plantar fascia; 2014 baseline X-rays Surgical History Surgical History H/O tubal ligation H/O removal of cyst brachial cleft Hx of colonoscopy Hx of tonsillectomy Tobacco Smoking/Tobacco Use Status: Never Passive smoking exposure: No (Both parents smoked in the house/car) Alcohol Alcohol Intake: current Alcohol intake frequency: a few times a month Alcohol type: wine Substance Use Substance use: Never Substance use type: does not use Details: alcohol: 11/10/23 Vital Signs and Lab Results Vital Signs Most Recent Vital Signs in EMR: Most Recent Vital Signs Temp Pulse Resp BP Pulse Ox 36.1 C L 87 16 151/98 H 97 11/14/23 10:00 11/14/23 10:00 11/14/23 10:00 11/14/23 10:00 11/14/23 10:00 Lab Results Blood Type / Crossmatch: No Data to Display Complete Blood Count: No Data to Display Complete Metabolic Panel: No Data to Display Liver Function Panel: No Data to Display Coagulation Panel: No Data to Display Cardiac Panel: No Data to Display Arterial Blood Gas: No Data to Display Venous Blood Gas: No Data to Display Pancreas Panel: No Data to Display Thyroid Panel: No Data to Display Infectious Disease: No Data to Display Blood Cultures: No Data to Display Toxicology Panel: No Data to Display Anesthesia Assessment and Plan Anesthesia History Personal History: No History of Anesthesia Complications Family History: No Family History of Anesthesia Complications Exercise Tolerance Exercise Tolerance: Metabolic Equivalents>4 Pertinent Negatives Pertinent Negatives: No Symptoms of GERD, No Major Cardiovascular Symptoms or Complaints, No Major Pulmonary Symptoms or Complaints and No History of CVA/TIA Cardiac & Pulmonary Exam Cardiac Exam: Normal S1/S2 Heart Sounds Pulmonary Exam: Clear Bilateral Breath Sounds Implantable Cardiac Device Does patient have a Pacemaker or an ICD?: No Airway Exam Known Difficult Airway: No Mallampati Class: 3 Mouth Opening: Normal (> 3cm) Thyromental Distance: Less than 3 cm Neck Range of Motion: Full ROM Neck Circumference: Normal Teeth Condition: Normal Dentition ASA Classification ASA Score: ASA 2 Emergency Case?: No NPO Status NPO Status: NPO Clears >2 hours, Solids >8 hours Anesthesia Plan Resuscitation Status: Full Code Anesthesia Technique: General Anesthesia Airway Planned: Natural Airway Monitors Used: Standard Monitors
[2023-11-14 11:25] VITALS: BMI 26.5
[2023-11-14 12:28] VITALS: BP 132/87; PULSE 80; RESP 16; TEMP 36; O2SAT 97
--- NOTE | 2023-11-14 12:35 | W.ANESPOSTOP ---
Postoperative Evaluation Date, Time and Location Date Performed: 11/14/23 Time Performed: 12:35 Patient Location: Day Surgery Unit Vital Signs Most Recent Imported Vital Signs: Most Recent Vital Signs Temp Pulse Resp BP Pulse Ox 36 C L 80 16 132/87 97 11/14/23 12:28 11/14/23 12:28 11/14/23 12:11/14/23 12:11/14/23 12:28 Pain Score Most Recent Pain Score: Most Recent Pain Score Pain Level 0 11/14/23 12:28 Assessment Mental Status: Awake (Alert & Oriented to Patient Baseline) Airway and Respiratory Function: Patent airway with normal (patient baseline) respiratory exam Cardiovascular Function: Hemodynamically Stable Hydration Status: Adequately Hydrated Nausea & Vomiting: No Nausea or Vomiting Pain: Pt. Denies Any Pain Peripheral Nerve Block: Patient did not receive a nerve block
[2023-11-14 13:00] VITALS: BP 146/85; PULSE 70; RESP 16; TEMP 35.9; O2SAT 98
== END 2023-11-14 13:08 | disposition home or self-care (01) ==
LOC: SUR 09:57
PROVIDERS: PCP Nurse Practitioner; Visit Provider Surgery
PROC: 0DJD8ZZ Inspection of Lower Intestinal Tract, Via Natural or Artificial Opening Endoscopic (ICD-10-PCS; CPT 45378; principal; 2023-11-14 11:30)
DX: Z12.11 Encounter for screening for malignant neoplasm of colon (principal)
CPT/HCPCS: 45378; J2001

== ENCOUNTER → 2024-02-25 15:34 | Outpatient (CLI) | payer BC, SELFPAY ==
--- NOTE | 2024-02-25 15:15 | DI.RAD_ITS ---
Exam(s) XR SHOULDER LT COMPLETE 2+V EXAM: XR SHOULDER LT COMPLETE 2+V CLINICAL HISTORY: M89.8X9 other spcd disorder tender lump superior to shoulder 6 weeks. FROM.. TECHNIQUE: 2D digital imaging was performed. Three views. COMPARISON: No exams were available for comparison FINDINGS: BONES: No acute fracture is present. No bony destructive lesion is seen. No deformity of the distal clavicle. JOINTS: No dislocation present. No spurring at the AC joint. The glenohumeral joint space is mainta ined. No significant degenerative changes. SOFT TISSUE: Normal. IMPRESSION: Unremarkable radiographs of the left shoulder. DATA REPOSITORY: RADIATION DOSE DELIVERED:
== END ==
PROVIDERS: Visit Provider Nurse Practitioner
DX: M89.8X1 Other specified disorders of bone, shoulder (principal)
CPT/HCPCS: 73030

== ENCOUNTER → 2024-04-07 10:39 | Outpatient (CLI) | payer BC, SELFPAY ==
--- NOTE | 2024-04-07 10:15 | DI.RAD_ITS ---
Exam(s) XR TOE RT FOURTH EXAM: XR TOE RT FOURTH CLINICAL HISTORY: Evaluate for fracture,foot pain, m79.673. TECHNIQUE: 2D digital imaging was performed. 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 This is similar appearance to the contralateral foot. There is an acute fracture through the middle phala nx. No bony destructive lesion is seen. JOINTS: No dislocation present. SOFT TISSUE: Normal swelling of 4th toe. IMPRESSION: Nondisplaced fracture of the middle phalanx. DATA REPOSITORY: RADIATION DOSE DELIVERED:
== END ==
PROVIDERS: PCP Nurse Practitioner; Visit Provider Family Medicine
DX: S62.650A Nondisplaced fracture of middle phalanx of right index finger, initial encounter for closed fracture (principal); X58.XXXA Exposure to other specified factors, initial encounter
CPT/HCPCS: 73660

== ENCOUNTER → 2024-06-10 01:19 | Outpatient (CLI) | payer BC, SELFPAY ==
--- NOTE | 2024-06-10 15:15 | DI.MAMMO_ITS ---
Exam(s) MAMMO SCREENING EXAM: MAMMO SCREENING CLINICAL HISTORY: screening TECHNIQUE: Bilateral full field digital CC and MLO mammographic images were obtained with 3D tomosyn thesis and utilizing computer aided detection (CAD). COMPARISON: Available for comparison. FINDINGS: Masses/Architectural Distortion: None seen. Microcalcifications: No suspicious pleomorphic-type are seen. Skin Thickening/Nipple Retraction: None. IMPRESSION: 1. No significant interval change with no specific features of malignancy noted. 2. Unless there is more urgent need, screening mammography is recommended, as per [employer] guidelines. BI-RADS Category 1 - Negative Breast Density - Category B - Scattered areas of fibroglandular density Breast density category C or D implies that the patient has dense breast tissue. Dense breast tissue is very common and is not abnormal but dense breast tissue can make it harder to find cancer on a ma mmogram. Also, dense breast tissue may increase their breast cancer risk. This information about the result of the mammogram report was provided to the patient to raise their awareness. Use this report when you speak with the patient about their risks for breast cancer, which includes their family hist ory. At that time, you may recommend for more screening tests (Ultrasound or MRI) as they might be us eful based on their risk. A negative radiographic report should not delay biopsy if a dominant or clinically suspicious mass is present. Up to ten percent of cancers are not identified on mammography. A negative report may reinforce clinical impression. Adenosis and dense breasts may obscure an underlying neoplasm. False positive reports average 6 to 10%. Patient will receive a letter notifying them of these results.
== END ==
PROVIDERS: PCP Nurse Practitioner; Visit Provider Obstetrics & Gynecology
DX: Z12.31 Encounter for screening mammogram for malignant neoplasm of breast (principal); N95.2 Postmenopausal atrophic vaginitis
CPT/HCPCS: 77063; 77067

== ENCOUNTER 2024-06-24 14:09 | Outpatient (REF) | payer BC, SELFPAY ==
--- NOTE | 2024-06-24 | PAPFT_PTH ---
PATIENT: Hiral Lucas LOC: [facility] U#:[id number] AGE/SX: 63/F ROOM: RE06/24/[address]: Manuela Bee MD : 1960 BED: DIS: 06/24/2024 SPEC #: [id number] RECD: 06/24/24 16:26 STATUS: GENESIS REJose #: [id number] ESME: 06/24/24 00:[address]: Manuela Bee DEPT: [facility] Cytology RECD BY: Eileen Godfrey ENTERED: 06/24/24 16:26 SP TYPE: PAPFT OTHR DR: Betina Courtney APRN Tissues: 1 - CX/ENDOCX FOR PAP SMEARS Procedures: PAP THIN PREP/UVM Screening HPV DNA PROBE Comments: [id number] (HPV 16 & 18/45)
== END 2024-06-24 14:10 | disposition home or self-care (01) ==
LOC: LBN 14:09
PROVIDERS: PCP Nurse Practitioner; Visit Provider Obstetrics & Gynecology
DX: Z12.4 Encounter for screening for malignant neoplasm of cervix (principal)
CPT/HCPCS: 88142; 87624

== ENCOUNTER 2024-08-02 08:20 | Emergency (ER) | payer BC, SELFPAY ==
[2024-08-02 08:28] VITALS: BP 188/103; PULSE 83; RESP 15; O2SAT 99
--- NOTE | 2024-08-02 08:45 | DI.RAD_ITS ---
Exam(s) XR ANKLE LT COMPLETE EXAM: XR ANKLE LT COMPLETE CLINICAL HISTORY: fall, tender lateral mal TECHNIQUE: 2D digital imaging was performed. Three views. COMPARISON: No exams were available for comparison FINDINGS: BONES: Nondisplaced fracture extending transversely through the lateral malleolus. Additional fractu re seen at the tip of the medial malleolus. No bony destructive lesion is seen. JOINTS:The ankle mortise is normally aligned. Joint effusion present. SOFT TISSUE: Swelling around the malleoli. IMPRESSION: Nondisplaced fractures at the tip of the medial malleolus as well as lateral malleolus. DATA REPOSITORY: RADIATION DOSE DELIVERED:
--- NOTE | 2024-08-02 08:45 | DI.RAD_ITS ---
Exam(s) XR WRIST LT COMPLETE EXAM: XR WRIST LT COMPLETE CLINICAL HISTORY: foosh, pain distall ulna. TECHNIQUE: 2D digital imaging was performed. Three views. COMPARISON: CR,XR XR WRIST LT COMPLETE from 03/02/2023 FINDINGS: BONES: No acute fracture is present. No bony destructive lesion is seen. JOINTS: The carpal bones are normally aligned. Mild degenerative changes of 1st carpometacarpal khang nt SOFT TISSUE: Mild swelling. IMPRESSION: No acute bony abnormality. DATA REPOSITORY: RADIATION DOSE DELIVERED:
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
[2024-08-02] MEDS: Ibuprofen 600 MG TAB PO (08:51)
[2024-08-02 10:04] VITALS: BP 161/97; PULSE 73; RESP 18; O2SAT 98
--- NOTE | 2024-08-02 10:28 | DI.VRAD_ITS ---
PROCEDURE INFORMATION: Exam: XR Left Wrist Exam date and time: 08/02/2024 9:01 AM Age: 63 years old Clinical indication: Other: Foosh, pain distal ulna TECHNIQUE: Imaging protocol: Radiologic exam of the left wrist. Views: 3 or more views. COMPARISON: CR XR WRIST LT COMPLETE 03/02/2023 7:13 PM FINDINGS: Bones/joints: Demineralization of the visualized bones. Mild degenerative disease at the 1st carpometacarpal joint. Soft tissues: Normal. IMPRESSION: No acute fracture or dislocation. Dictated and Authenticated by: Av Stephens MD. Ordering:HAMMAD Flores MD
--- NOTE | 2024-08-02 10:29 | DI.VRAD_ITS ---
PROCEDURE INFORMATION: Exam: XR Left Ankle Exam date and time: 08/02/2024 9:05 AM Age: 63 years old Clinical indication: Other: Fall, tender lateral mal TECHNIQUE: Imaging protocol: Radiologic exam of the left ankle. Views: 3 or more views. COMPARISON: US SOFT TISSUE EXTREMITY 03/09/2024 8:16 AM FINDINGS: Bones/joints: Nondisplaced fracture at the tip of the lateral malleolus. Nondisplaced fracture at the tip of the medial malleolus. Small ankle joint effusion. Soft tissues: Soft swelling overlying the lateral malleolus. IMPRESSION: Nondisplaced fracture at the tip of the lateral and tip of the medial malleolus with an associated ankle joint effusion. Dictated and Authenticated by: Av Stephens MD. Ordering:HAMMAD Flores MD
[2024-08-02 11:26] VITALS: BP 146/101; PULSE 72; RESP 18; O2SAT 96
== END 2024-08-02 11:27 | disposition home or self-care (01) ==
PROVIDERS: Emergency Provider Student in an Organized Health Care Education/Training Program; PCP Nurse Practitioner
DX: S82.845A Nondisplaced bimalleolar fracture of left lower leg, initial encounter for closed fracture (principal); S60.212A Contusion of left wrist, initial encounter; W19.XXXA Unspecified fall, initial encounter
CPT/HCPCS: 27808; 99284; 73110; 73610; 99283

== ENCOUNTER 2024-08-27 13:13 | Outpatient (CLI) | payer BC, SELFPAY ==
--- NOTE | 2024-08-27 10:06 | DI.RAD_ITS ---
Exam(s) XR ANKLE LT COMPLETE EXAM: XR ANKLE LT COMPLETE CLINICAL HISTORY: F/U FRACTURE TECHNIQUE: 2D digital imaging was performed. Three views. COMPARISON: CR,XR XR ANKLE LT COMPLETE from 08/02/2024 FINDINGS: BONES: There has been healing at the fracture site tip of the fibula. No acute fracture is present. No bony destructive lesion is seen. JOINTS:The ankle mortise is normally aligned. SOFT TISSUE: Normal. IMPRESSION: Some interval healing of lateral malleolar fracture. DATA REPOSITORY: RADIATION DOSE DELIVERED:
--- NOTE | 2024-08-27 10:25 | DI.RAD_ITS ---
Exam(s) XR WRIST LT COMPLETE EXAM: XR WRIST LT COMPLETE CLINICAL HISTORY: continued wrist pain. TECHNIQUE: 2D digital imaging was performed. Three views. COMPARISON: CR,XR XR WRIST LT COMPLETE from 08/02/2024 FINDINGS: BONES: No acute fracture is present. No bony destructive lesion is seen. JOINTS: The carpal bones are normally aligned. Mild degenerative changes 1st carpal metacarpal join t. SOFT TISSUE: Mild soft tissue swelling. IMPRESSION: No acute abnormality. DATA REPOSITORY: RADIATION DOSE DELIVERED:
== END 2024-08-27 13:14 | disposition home or self-care (01) ==
LOC: DIORS 13:13
PROVIDERS: PCP Nurse Practitioner; Visit Provider Physician Assistant
DX: S82.845D Nondisplaced bimalleolar fracture of left lower leg, subsequent encounter for closed fracture with routine healing (principal); S60.212D Contusion of left wrist, subsequent encounter; X58.XXXD Exposure to other specified factors, subsequent encounter
CPT/HCPCS: 73110; 73610

== ENCOUNTER 2025-06-14 09:14 | Outpatient (REF) | payer BC, SELFPAY ==
--- NOTE | 2025-06-14 08:30 | PAPFT_PTH ---
PATIENT: Hiral Lucas LOC: [facility] U#:[id number] AGE/SX: 64/F ROOM: RE06/14/[address]: Manuela Bee MD : 1960 BED: DIS: 06/14/2025 SPEC #: [id number] RECD: 06/14/25 13:15 STATUS: GENESIS REJose #: [id number] ESME: 06/14/25 08:[address]: Manuela Bee DEPT: [facility] Cytology RECD BY: Chantelle Justice ENTERED: 06/14/25 13:16 SP TYPE: PAPFT KIMANI DR: Betina Courtney APRN Tissues: 1 - CX/ENDOCX FOR PAP SMEARS Procedures: PAP THIN PREP/[facility]VM Screening HPV DNA PROBE Comments: [id number] (HPV 16 & 18/45)
== END 2025-06-14 09:15 | disposition home or self-care (01) ==
LOC: LBN 09:14
PROVIDERS: PCP Nurse Practitioner; Visit Provider Obstetrics & Gynecology
DX: Z12.4 Encounter for screening for malignant neoplasm of cervix (principal)
CPT/HCPCS: 88142; 87624

== ENCOUNTER 2025-06-29 11:46 | Outpatient (CLI) | payer BC, SELFPAY ==
--- NOTE | 2025-06-29 08:15 | DI.MAMMO_ITS ---
Exam(s) MAMMO SCREENING EXAM: MAMMO SCREENING CLINICAL HISTORY: screening,z12.31 TECHNIQUE: Mammograms were interpreted according to the usual protocol including computer analysis with CAD system, tomosynthesis and C-view imaging. COMPARISON: 2015 through 2023 FINDINGS: The breasts are composed of scattered fibroglandular densities, Breast Density category B. No suspicious masses or suspicious microcalcifications are seen. No skin thickening or abnormal axillary lymph nodes are seen. There has been no significant change from prior exams. IMPRESSION: BI-RADS Category 1, Negative mammogram Yearly screening mammography is recommended. Breast Density - Category B - There are scattered areas of fibroglandular density. Breast density Category C or D implies that the patient has dense breast tissue. Dense breast tissue can make it harder to find cancer on a mammogram. Dense breast tissue is also associated with an increased risk of breast cancer. This information about the result of the mammogram report was provided to the patient to raise their awareness. Use this report when you speak with the patient about their risks for breast cancer, which includes their family history. At that time, you may recommend additional screening tests (Ultrasound or MRI) as these tests may add significant information. A negative radiographic report should not delay biopsy if a dominant or clinically suspicious mass is present. Up to ten percent of cancers are not identified on mammography. A negative report may reinforce clinical impression. Adenosis and dense breasts may obscure an underlying neoplasm. False positive reports average 6 to 10%. Patient will receive a letter notifying them of these results.
== END 2025-06-29 12:06 ==
PROVIDERS: PCP Family Medicine; Visit Provider Obstetrics & Gynecology
DX: Z12.31 Encounter for screening mammogram for malignant neoplasm of breast (principal); R92.323 Mammographic fibroglandular density, bilateral breasts
CPT/HCPCS: 77063; 77067

== ENCOUNTER → 2025-10-15 01:43 | Outpatient (CLI) | payer BC, SELFPAY ==
--- NOTE | 2025-10-15 12:57 | DI.DEXA_ITS ---
Exam(s) XR DEXA BONE DENSITY W/WO JIE EXAM: XR DEXA BONE DENSITY W/WO JIE CLINICAL HISTORY: Screening for osteoporosis, POSTMENOPAUSAL STATE, HX FRACTURE TECHNIQUE: Hologic Horizon C densitometer analysis of left hip, lumbar spine and right forearm. Lateral survey image of the thoracic and lumbar spine. COMPARISON: No exams were available for comparison FINDINGS: Lateral view of the thoracic and lumbar spine shows no evidence of compression fractures. Bone mineral density measurements of the lumbar spine correspond to a total T- score of -2.1, in the osteopenic range. Bone mineral density measurements of the left hip correspond to a total T-score of -1.7. The femoral neck T-score is -1.8, in the osteopenic range. Theright forearm bone mineral density measurements correspond to a T-score of the distal 3rd of -1.9, in the osteopenic range. IMPRESSION: Osteopenia of the spine, hip and forearm.
== END ==
LOC: DI 01:43
DX: Z78.0 Asymptomatic menopausal state (principal); Z87.81 Personal history of (healed) traumatic fracture; M85.89 Other specified disorders of bone density and structure, multiple sites
CPT/HCPCS: 77080

== ENCOUNTER 2025-10-18 07:29 | Outpatient (CLI) | payer BC, SELFPAY ==
[2025-10-18 08:17] LABS: ALT 21 U/L (10-49); AST 25 U/L (<34); Albumin 4.3 g/dL (3.2-5.0); Alkaline Phosphatase 105 U/L (46-116); Anion Gap 7.4 mmol/L (3-11); BUN 11 mg/dL (9-23); Bilirubin, Total 0.50 mg/dL (0.2-1.2); CO2 29.6 mmol/L (20.0-31.0); Calcium 9.2 mg/dL (8.3-10.6); Chloride 110 mmol/L (98-107); Cholesterol 203 mg/dL (<200); Glucose 84 mg/dL (74-106); HDL Cholesterol 61 mg/dL (>40); Potassium 4.2 mmol/L (3.5-5.1); Sodium 147 mmol/L (136-145); Total Protein 6.5 g/dL (5.7-8.2)
== END 2025-10-18 07:30 | disposition home or self-care (01) ==
LOC: LBO 07:30
DX: Z00.00 Encounter for general adult medical examination without abnormal findings (principal); E78.5 Hyperlipidemia, unspecified
CPT/HCPCS: 36415; 80053; 80061